=== PATIENT | male | born 1990 | race Caucasian/White ===

== ENCOUNTER 2021-05-10 13:57 | Observation (INO) | payer OTHER, SELFPAY ==
[2021-05-10 14:01] VITALS: BP 140/70; PULSE 77; RESP 16; TEMP 37.1; O2SAT 100
--- NOTE | 2021-05-10 14:45 | DI.CT_ITS ---
Exam(s) CT LUMBAR SPINE WO EXAM: CT LUMBAR SPINE WO CLINICAL HISTORY: back midline and b/l paraspinal TECHNIQUE: COMPARISON: No exams were available for comparison FINDINGS: CT examination lumbosacral spine was performed utilizing multi slice acquisition and multiplanar edwin nstruction. Visualized portions of the abdomen show no evidence of pre-spinal mass. Kidneys and adr enals appear intact as visualized. Normal diameter of abdominal aorta. No adenopathy seen. Urinary bladder grossly unremarkable. Visualized bowel is intact. No focal bony abnormality identified in the region surveyed. No evidence of spondylolysis or spondyl olisthesis. There is abnormal contour of intervertebral discs at L4-5 and L5-S1 levels, there is suggestion of mo derate broad-based disc herniations at both the L4-5 and L5-S1 levels suggest laura Anjana deforming th e thecal sac anteriorly at these levels. No additional disc herniation identified in the lumbar region. No bony central canal spinal stenosis or neural foraminal stenosis. IMPRESSION: There appear to be broad-based predominantly central disc herniations, moderate in size, at both L4-5 and L5-S1 levels. Please correlate with the patient's neurologic examination. MR would provide mor e accurate detail involving these apparent herniated discs. RADIATION DOSE DELIVERED: 795.08mGy.cm Total DLP CTDIvol RADIATION OPTIMIZATION: All CT scans at this facility use at least one of these dose optimization te chniques: automated exposure control; mA and/or kV adjustment per patient size (includes targeted exa ms where dose is matched to clinical indication); or iterative reconstruction.
--- NOTE | 2021-05-10 14:51 | ED.GENADUL_ITS ---
Discharge Plan Disposition Patient Disposition: [facility] INPATIENT Condition: Stable Discharge Details Clinical Impression: Intractable back pain, Lumbar disc herniation Primary Care Provider: Unknown,Unknown ED Provider: Jany Escobar Home Meds and New Rx's Prescriptions: No Action topiramate 25 mg tablet 25 mg PO DAILY RF: 0 sertraline 50 mg tablet 50 mg PO .QHS RF: 0 Medical Decision Making 31-year-old male presents with sudden onset of lower back pain after carrying and placing down an empty recycling bin prior to arrival. Given nitrous oxide per EMS in route with temporary relief. No cauda equina symptoms. Patient appears uncomfortable. He has no focal deficits. Neurovascular intact. Due to complaint of crunching sensation will obtain CT lumbar spine. Will give a dose of IM Toradol, p.o. oxycodone, p.o. Valium and p.o. prednisone and reassess. CT reviewed and there is a broad-based predominantly central disc herniation, moderate in size at both L4-5 and L5-S1 levels. Please correlate with patient's neurologic exam. MRI would provide more accurate details on these apparent herniated discs. Images pushed to [facility] spine for review. Patient reassessed and he has improvement at rest, but significant pain with any movement. Will place an IV and give a dose of morphine. Images reviewed with [facility] spine --they note that CT imaging is not ideal for review of soft tissue so cannot confirm that there is disc herniation. As patient has no radicular pain, he may not need an MRI if his pain is well controlled. Recommends conservative management with pain control and follow-up with PCP and pain clinic if able to control pain in the emergency department. Patient reassessed and he was able to take a few steps with a walker but was in significant pain and does not feel comfortable going home. Will admit for intractable back pain with evaluation with PT and consideration for MRI lumbar spine tomorrow if indicated. Case discussed with hospitalist who accepts patient for admission. Medical Records Medical records reviewed: Yes I reviewed the patient's medical records. Imaging Data Radiologic Study: Radiologist's impression: CT LUMBAR SPINE WO CLINICAL HISTORY: back midline and b/l paraspinal TECHNIQUE: COMPARISON: No exams were available for comparison FINDINGS: CT examination lumbosacral spine was performed utilizing multi slice acquisition and multiplanar reconstruction. Visualized portions of the abdomen show no evidence of pre-spinal mass. Kidneys and adrenals appear intact as visualized. Normal diameter of abdominal aorta. No adenopathy seen. Urinary bladder grossly unremarkable. Visualized bowel is intact. No focal bony abnormality identified in the region surveyed. No evidence of spondylolysis or spondylolisthesis. There is abnormal contour of intervertebral discs at L4-5 and L5-S1 levels, there is suggestion of moderate broad-based disc herniations at both the L4-5 and L5-S1 levels suggest laura Anjana deforming the thecal sac anteriorly at these levels. No additional disc herniation identified in the lumbar region. No bony central canal spinal stenosis or neural foraminal stenosis. IMPRESSION: There appear to be broad-based predominantly central disc herniations, moderate in size, at both L4-5 and L5-S1 levels. Please correlate with the patient's neurologic examination. MR would provide more accurate detail involving these apparent herniated discs. HPI General Mode of arrival: EMS . Date/Time Provider Initiated Documentation: 05/10/21 14:41 . Limitations to Documentation: physical limitation . Information obtained by: patient . HPI Narrative: Patient is a 31-year-old male with a history of migraine and depression who presents for sudden onset of midline lower back pain after carrying into the recycling bin prior to arrival. Patient states he was carrying a bin outside when he bent over to put it down and felt sudden crunching in his midline lower back with severe back pain across his lower back. He states the pain caused him to drop immediately to his knees. He has not taken any medication for pain at home prior to arrival. EMS gave him nitrous oxide with some temporary relief. He denies any bowel or bladder incontinence, saddle anesthesia, leg pain weakness or numbness. He states for the past 2 days he has had knee pain and thinks he has altered his gait to compensate for this pain and limit weightbearing on that side. Related Data Home Medications Medication Instructions Recorded Confirmed sertraline 50 mg PO .QHS 05/10/21 05/10/21 topiramate 25 mg PO DAILY 05/10/21 05/10/21 Allergies Allergy/AdvReac Type Severity Reaction Status Date / Time seasonal Allergy Uncoded 05/10/21 14:06 General Stated Complaint: Nk/Back Pain MELA: 3 Review of Systems All systems reviewed & are unremarkable except as noted in HPI and below Constitutional Constitutional: Reports as per HPI, Denies chills and Denies fever(s) Eyes Eyes: Denies blurry vision ENT Ears, Nose, Mouth, and Throat: Denies dizziness, Denies sore throat and Denies throat swelling Cardiovascular Cardiovascular: Denies chest pain and Denies dyspnea Respiratory Respiratory: Denies cough and Denies dyspnea Gastrointestinal Gastrointestinal: Denies abdominal pain, Denies diarrhea and Denies vomiting Genitourinary Genitourinary: Denies hematuria and Denies dysuria Musculoskeletal Musculoskeletal: Reports back pain and Denies numbness Integumentary/Breasts Skin/Breast: Denies lesions and Denies rash Neurologic Neurologic: Denies dizziness, Denies localized weakness and Denies numbness Allergic/Immunologic Allergic/Immunologic: Denies throat swelling PFSH Medical History Depression Migraine Surgical History No significant past surgical history Social History Smoking risk assessment performed?: No Substance use type: does not use Exam Const General: cooperative, healthy appearing and no acute distress HENMT Head: normal to inspection Face and sinus: normal facial exam Eyes General: appearance normal, both eyes and all related structures EOM: EOM intact bilaterally Neck Neck: normal visual inspection and No submandibular swelling Lymphatic: no lymphadenopathy noted Chest Chest: normal inspection of the chest and no tenderness Resp Effort & Inspection: normal respiratory effort and able to speak in complete sentences Auscultation: clear to auscultation bilaterally Cardio Rate: regular rate Rhythm: regular rhythm GI Inspection: normal to inspection Palpation: soft, not firm, not rigid and nontender Auscultation: normal bowel sounds Back/Spine/Pelvis Thoracic/Lumbar Spine: straight leg raise negative bilaterally Skin General skin exam: no rashes or lesions noted Neuro General: patient alert, patient awake and patient oriented x3 Cognition: normal cognition Speech: speech normal Motor: muscle tone normal throughout and strength 5/5 throughout Sensory Exam: no sensory deficits noted DTR's: Rt Patellar: 1+, Lt Patellar: 1+, Rt Ankle: 1+ and Lt Ankle: 1+ Plantar Reflexes: Equivocal: bilateral (Negative babinski b/l ) Extrem General: normal to inspection, full ROM, capillary refill normal, no calf tenderness bilaterally and no edema Psych Appearance: grossly normal Mental Status: mental status grossly normal Speech and Movement: speech and movement normal Affect: normal affect Course Vital Signs Vital signs: Vital Signs Temperature 98.8 F 05/10/21 14:01 Pulse 77 05/10/21 14:01 Respiratory Rate 16 05/10/21 14:01 Blood Pressure 140/70 05/10/21 14:01 Pulse Oximetry 100 05/10/21 14:01 Temperature 98.8 F 05/10/21 14:01 Temperature Source Skin 05/10/21 14:01 Pulse 77 05/10/21 14:01 Respiratory Rate 16 05/10/21 14:01 Respiratory Effort Non-Labored 05/10/21 14:01 Blood Pressure 140/70 05/10/21 14:01 Blood Pressure Position Supine 05/10/21 14:01 Pulse Oximetry 100 05/10/21 14:01 Oxygen Delivery Method Room Air 05/10/21 14:01 Oxygen Flow Rate 0 05/10/21 14:01 Pain Level 10 05/10/21 14:08
[2021-05-10] MEDS: diazePAM 5 MG TAB PO (14:58)
[2021-05-10] MEDS: Ketorolac 60 MG/2 ML VIAL IM (14:59)
[2021-05-10] MEDS: oxyCODONE 5 MG TAB PO ×3 (14:59→21:12)
[2021-05-10] MEDS: predniSONE 20 MG TAB 60 MG PO (14:59)
[2021-05-10 16:18] VITALS: BP 108/64; PULSE 70; RESP 16; O2SAT 99
--- NOTE | 2021-05-10 17:54 | NUR.NOTE ---
pt attempted to get up . he was able to ambulate around the bed before the pain in his back became unbearable Nursing Note:
--- NOTE | 2021-05-10 19:04 | W.PM.HP.N ---
Date of service: 05/10/21 Time of Service: 19:04 Assessment and Plan Assessment and plan (1) Back pain: Status: Acute Assessment and plan: Acute low back pain due (no doubt) to herniated disc. No neurological compromise. Will continue to treat symptomatically with analgesics, steroids and will add muscle relaxant and have PT in to see if we can mobilize him. History of Present Illness History of Present Illness Chief Complaint: back pain Narrative: 31 male -- while lifting recycling bin at home felt sudden midline low back pain. No radiation or LE sensory symptoms. In ER w/u of note for intact neurological exam and CT showing (probable) disc herniation at both L4-5 and L5-S1 levels. Patient has received Toradol, MS and Oxycodone x 2 with modest pain relief, along with Prednisone 60. Staff attempted to walk him w/o success due to pain. He is admitted for further management. At present states pain persists but is at manageable level -- for now. Review of Systems All systems reviewed & are unremarkable except as noted in HPI and below PFSH Medical History Depression Migraine Surgical History No significant past surgical history Social History Smoking risk assessment performed?: No Substance use type: does not use Meds Allergies and Home Medications Allergies Allergy/AdvReac Type Severity Reaction Status Date / Time seasonal Allergy Uncoded 05/10/21 14:06 Home Medications Medication Instructions Recorded Confirmed Type sertraline 50 mg PO .QHS 05/10/21 05/10/21 History topiramate 25 mg PO DAILY 05/10/21 05/10/21 History Exam Narrative Exam Narrative: 108/64, 70, 37.1, 16, 99% RA. HEENT atraumatic; neck supple; lungs clear; heart RRR w/o MRG; abdomen soft and NT; back not examined due to patient discomfort (patient supine); extremities w/o edema; neuro Ox3, lucid, motor 5/5 prox/distal, sensory intact light touch, toes downgoing Results Last Vital Signs Temp 37.1 C 05/10/21 14:01 Pulse 70 05/10/21 16:18 Resp 16 05/10/21 16:18 BP 108/64 05/10/21 16:18 Pulse Ox 99 05/10/21 16:18
[2021-05-10 20:51] VITALS: BP 125/79; PULSE 81; RESP 16; TEMP 36.5; O2SAT 99
[2021-05-10 21:02] VITALS: BP 125/79; PULSE 81; RESP 16; TEMP 36.5; O2SAT 99
[2021-05-10] MEDS: Cyclobenzaprine 10 MG TAB PO (21:12)
[2021-05-10] MEDS: Topiramate 25 MG TAB PO (21:12)
[2021-05-10] MEDS: Sertraline 50 MG TAB PO (21:13)
--- NOTE | 2021-05-11 | DI.MRI_ITS ---
Exam(s) MR LUMBAR SPINE WO EXAM: MR LUMBAR SPINE WO CLINICAL HISTORY: disc hernation. TECHNIQUE: Multiplanar multisequence MRI of the Lumbar spine was performed. COMPARISON: Prior CT scan 05/10/2021 was reviewed FINDINGS: Five lumbar vertebrae are presumed. Conus medullaris is at normal level. There is no evidence of conus mass nor subjacent clumping of in trathecal nerve roots to suggest arachnoiditis. The distal thecal sac appears unremarkable.There is no evidence of Tarlov intrasacral cysts nor other significant findings within the sacral canal Bones:There are no fractures nor ominous osseous lesions in the lumbar vertebral bodies and visualize d sacrum. With respect to the individual levels... T12-L1: Unremarkable L1-2: Normal disc height and signal. No disc herniation nor central canal stenosis.No foraminal steno sis L2-3: Normal disc height. No disc herniation nor central canal stenosis.No foraminal stenosis.No face t arthropathy. L3-4: Normal disc height. No disc herniation or central canal stenosis.No foraminal stenosis.No face t arthropathy. L4-5: Normal disc height and signal. There is posterior central subligamentous disc protrusion which indents the anterior aspect of the thecal sac. This extends posteriorly 4.5 millimeters and is appr oximately 1.5 cm wide. Central canal dimensions are lower normal. Disc herniation does not extend a ppreciably into the exiting neural foramina which are patent bilaterally. No significant facet arthr osis at this level. L5-S1: Normal disc height. There is also a central posterior subligamentous disc protrusion at this level, quite similar in size and appearance to what is present at L4-5 level and slight indentation o f the thecal sac. Central canal dimensions are lower normal. Disc herniation does not extend apprec iably into the exiting neural foramina and there is no significant foraminal stenosis on either side at this level. No significant facet arthropathy. Soft tissues: paraspinal soft tissues appear unremarkable. IMPRESSION: 1. There are posterior central subligamentous disc herniations at both L4-5 and L5-S1 levels as descr ibed above, and as also seen on prior CT scan 05/10/2021. The disc herniations at these levels do no t appear to have increased in size when compared to that CT scan. No prominent central canal stenosi s. 2. No foraminal stenosis. 3. No abnormal marrow signal DATA REPOSITORY:
[2021-05-11 00:16] LABS: Source Nasal/Nares
[2021-05-11 04:43] VITALS: BP 113/56; PULSE 91; RESP 18; TEMP 35.8; O2SAT 99
[2021-05-11] MEDS: Acetaminophen 325 MG TAB 650 MG PO (08:10)
[2021-05-11] MEDS: Cyclobenzaprine 10 MG TAB PO (08:11)
[2021-05-11] MEDS: predniSONE 20 MG TAB 60 MG PO (08:11)
[2021-05-11 08:25] VITALS: BP 122/65; PULSE 81; RESP 18; TEMP 36.3; O2SAT 100
[2021-05-11] MEDS: oxyCODONE 5 MG TAB PO (09:30)
[2021-05-11] MEDS: Normal Saline Flush 10 ML SYR IVP (09:32)
--- NOTE | 2021-05-11 10:04 | PDOC.CMIN ---
- If Service Date Differs Date of service: 05/11/21 Time of Service: 10:04 Care Management Initial Assess REASON FOR HOSPITALIZATION:: back pain PAST MEDICAL HISTORY/PAST SURGICAL HISTORY:: Medical History . Depression. Migraine. Surgical History . No significant past surgical history PREVIOUS FUNCTIONAL STATUS/SOCIAL/FAMILY SUPPORTS:: Nelson lives in [place], [place] with his Dania. They have no children. Dania volunteered that they do have dogs. 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 He is independent at baseline and receives no community services. CURRENT FUNCTIONAL STATUS:: Nelson was dressed and ready for discharge when CM met with him. He was pleasant and cooperative but was in pain. He informed CM that his MRI showed that he has 2 bulging discs. He is to follow up with neurosurgery and outpatient PT. ADVANCE DIRECTIVES:: none on file Has patient been provided with info about the portal/API?: Yes Did the patient sign up for the portal?: No CODE STATUS:: Full Code INSURANCE COVERAGE / FINANCIAL ISSUES:: [employer] CURRENT HOME/COMMUNITY SERVICES/EQUIPMENT:: none PRIMARY CARE PHYSICIAN:: [facility]. Booker at [facility] in [place] POTENTIAL DISCHARGE NEEDS:: Follow up with PCP and plan of care PATIENT/FAMILY EDUCATION NEEDS:: Review of discharge instructions, medications, activity, limitations, follow up plan, Ask Me Three TRANSPORTATION:: via private vehicle with family PLAN:: Nelson will be dicharged home with no new services. He will follow up with his PCP, neurosurgery and plan of care and transport with family. He will also receive outpatient PT.
[2021-05-11 11:43] LABS: COVID-19 PCR Negative (Negative)
--- NOTE | 2021-05-11 13:12 | IN_ITS ---
Date of service: 05/11/21 Time of Service: 11:09 PT Notes Visit Reasons: Low Back Pain Physical Therapy Inpatient Initial Evaluation Date: 05/11/2021 Referring Doctor: Jed Santiago MD PT Orders: PT CONSULT: Eval/treat. Precautions: Fall. Standard. Back precautions in place. Patient Profile/Admitting Diagnosis: Derek is a 31-year-old male who presented to the ED on 05/10/2021 due to sudden midline low back pain brought on by moving loaded recycling bins at home. Patient is diagnosed with low back pain and is admitted for pain management and mobilization by PT. PMHX: Medical History Depression Migraine Surgical History No significant past surgical history Social History/Home Situation: Lives with in a private home with 2 steps to enter. Has 7 steep and narrow steps that lead onto a landing and another 4 steps to the second floor of the house where there the bedroom is. 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 Equipment Owned/DME: None. Subjective: Agreeable to PT consult. States that the night before, he was moving some loaded recyling bins and when he attempted to bend down, he heard a pop in his low back that was accompanied by severe pain which prevented him from standing back up. He stayed on the ground on all fours until EMS picked him up 20 minutes after. This morning this provider saw patient on his way out from the bathroom right after his shower slowly walking back to his hospital room. Has 2/10 pain n the back at rest. Pain does not radiate to either LE. He states that he feels a lot better but still endorses 4-5/10 pain in the low back with weight bearing and movement. Objective: General Observation: Limited trunk rotation duirng ambulation. Movements remain guarded specially during movement transitions. Palpation: Midline lumbar spine tender to touch, lumbar paraspinals tender as well Mental Status: Alert and oriented as to person, place, time, and purpose. Able to pay attention, focus, and respond appropriately. Pain: 2/10 at rest. 5/10 in low back area with ambulation activity ROM: Right Upper Extremity: Shoulder Flexion WFL. Shoulder abduction WFL. Elbow flexion WFL. Wrist flexion WFL. Functional opening and closing of hand WFL. Left Upper Extremity: Shoulder Flexion WFL. Shoulder abduction WFL. Elbow flexion WFL. Wrist flexion WFL. Functional opening and closing of hand WFL. Right Lower Extremity: Hip flexion WFL. Hip abduction WFL. Knee flexion WFL. Ankle dorsiflexion WFL. Ankle plantarflexion WFL. Left Lower Extremity: Hip flexion WFL. Hip abduction WFL. Knee flexion WFL. Ankle dorsiflexion WFL. Ankle plantarflexion WFL. Strength: Right Upper Extremity: Shoulder flexors 5/5. Shoulder abductors 5/5. Elbow flexors 5/5. Elbow extensors 5/5. [employer] strong. Left Upper Extremity: Shoulder flexors 5/5. Shoulder abductors 5/5. Elbow flexors 5/5. Elbow extensors 5/5. [employer] strong. Right Lower Extremity: Hip flexors 4-/5. Hip abductors 4-/5. Knee flexors 5/5. Knee extensors 4-/5. Ankle dorsiflexors 5/5. Ankle plantarflexors 5/5. Left Lower Extremity: Hip flexors 4-/5. Hip abductors 4-/5. Knee flexors 5/5. Knee extensors 4-/5. Ankle dorsiflexors 5/5. Ankle plantarflexors 5/5. THERA EX: Patient was instructed with back flexion exercises of posterior pelvic tilting, abdominal drawing-in maneuver, unilateral and bilateral [id number] combined with abdominal bracing, and pelvic/knee rocks prior to ambulation activity x 10 reps. Bed Mobility/Transfers: Rolling independent Supine to sit independent Sit to supine independent Sit to stand independent Stand to sit independent Gait: Instructed patient with level surface ambulation of 300 feet requiring supervision assist. Radha decreased. Trunk rotation minimized. Reported increased pain to 5/10 in the low back area at end of activity. Denies any radiation of pain to BLE. Stairs: Up and down 6 x 4-inch steps and 4 X 6-inch steps while holding onto 1 rail without increase in pain report. [id number] pattern. Balance: Static Sitting: Normal Dynamic Sitting: Normal Static Standing: Normal Dynamic Standing: Good Special Tests: Mobility Limitations Standardized Measure [facility] 6 clicks Basic Mobility Inpatient Short Form: Raw Score: 24 CMS Score: 0% deficit NEUROLOGIC TESTS: Tripod sign-produced increased pain but with no radiation Straight Leg Raise- produced increased central back pain without radiation at about 40 degrees in B legs with R SLR producing more pain than L L4 myotome 4-/5 on B sides L5 myotome 5/5 on B sides, able to heel walk for 5-8 without issues S1 myotome 5/5 on B sides, able to toe walk without issues L4 dermatome intact on L, decreased sensitivity to pin prick and light touch on R L5 dermatome intact on L, decreased sensitivity to pin prick and light touch on R S1 dermatome intact on L, decreased sesitivity to pin prick and light touch on R Informed Consent/Education: Patient was instructed in purpose of PT consult and plan of care. Agreeable to proceed with established PT POC to achieve personal goals. Assessment: No radiculopathy reported. Pain centralized. However, sensory changes noted with decreased ability to dicrimintae as to light touch and pin prick on L L4, L5, S1 dermatomal distribution. Pain level much more controlled as of this time. Patient will benefit from outpatient PT for continued pain management and core stabilization/strengthening to facilitate full return to all ADL task performance. MRI reading shows: 1. There are posterior central subligamentous disc herniations at both L4-5 and L5-S1 levels as described above, and as also seen on prior CT scan 05/10/2021. The disc herniations at these levels do not appear to have increased in size when compared to that CT scan. No prominent central canal stenosis. 2. No foraminal stenosis. 3. No abnormal marrow signal Patient presents with clinical signs and symptoms consistent with current/admitting diagnoses that have resulted to mobility limitations, gait instability, generalized weakness, and overall ADL decline as demonstrated by the following impairment level findings: 1. Decreased strength to L4 myotome bilaterally 3. Impaired activity tolerance 4. Pain in low back at 5/10 Impairments are contributing to the following functional limitations: 1. Increased completion time for mobility ADL performance 2. Limited ability to participate in activities below the hip 3. Difficulty with managing steps Patient is assessed as a [id number] moderate complexity based on the following: History: 31-year-old male with past medical history as indicated above Examination: Demonstrable impairment in strength, balance, and mobility level with underlying impairments and functional limitations as exhibited above as well as deficit score of 0% utilizing the [facility] Mobility Inpatient Short Form Presentation: Stable Decision Makin moderate complexity Goals: N/A. PT evalaution and 1 treatment session only for HEP education and functional mobility training. Plan of Care/Treatment Plan: N/A. PT evalaution and 1 treatment session only for HEP education and functional mobility training. DISCHARGE RECOMMENDATIONS: Outpatient PT services for cotninued pain management and core stabilization/strengthening to facilitate return to PLOF and vocational activities. TREATMENT CODE/TIME: Session 1- [id number] x 20 minutes, [id number] x 26 minutes beginning at 11:09 PM. Session 2--[id number] x 24 minutes beginning at 13:12 PM. Thank you for the opportunity to participate in the care of this patient. Mayra Zapien PT, DPT, CLT [facility] [place], [place]
[2021-05-11 15:43] VITALS: BP 124/66; PULSE 80; RESP 18; TEMP 36.3; O2SAT 100
[2021-05-11] MEDS: diazePAM 5 MG TAB 10 MG PO (15:52)
--- NOTE | 2021-05-11 15:59 | W.PM.DS.N ---
Date of service: 05/11/21 Time of Service: 15:59 DS: Diagnosis Discharge Diagnosis (1) Back pain: Start date: 05/11/21 Start time: 15:59 Status: Acute Asessment and Plan: woke up yesterday morning due to severe back pain. Admitted for pain control CT revealing There appear to be broad-based predominantly central disc herniations, moderate in size, at both L4-5 and L5-S1 levels. Please correlate with the patient's neurologic examination. MR would provide more accurate detail involving these apparent herniated discs. MRI ordered revealing MRIMPRESSION: 1. There are posterior central subligamentous disc herniations at both L4-5 and L5-S1 levels as described above, and as also seen on prior CT scan 05/10/2021. The disc herniations at these levels do not appear to have increased in size when compared to that CT scan. No prominent central canal stenosis. 2. No foraminal stenosis. 3. No abnormal marrow signal He was able to ambulate with PT but PT recommended outpatient PT. He will be seen starting tomorrow. Will give him percocet, valium, and skelaxin for pain. will also give narcan in setting of narcan and benzos. Will follow with PT and neurosurgery as an outpatient. 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 He denies CP, SOB, N/V/D Discharge Plan Disposition Patient Disposition: HOME Condition: Stable Discharge Details Reason For Visit: Low Back Pain Admit Date/Time: 05/10/21 19:13 Admit Provider: Jed Santiago Attending Provider: Jed Santiago Primary Care Provider: Unknown,Unknown Hospital Course Hospital Course: 31 y.o male presented to ED with c/o severe lower back pain. He was admitted to m/s for pain control and PT. imaging revealing for herniated discs L4-5 and L5-S1 levels. He worked with PT they recommend outpatient PT. He should be out of work for the ED until Tuesday to give him time to work with PT and become stronger. He will start PT tomorrow. Will send home with analgesics and muscle relaxants. Follow up with outpatient PT and neurosurgery at [facility], we will call with time and date. 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 He denies CP, SOB, N/V/D> Home Meds and New Rx's Prescriptions: New diazepam [Valium] 10 mg tablet 10 mg PO TID PRNQty: 60 RF: 0 oxycodone 5 mg tablet 5 mg PO Q4H PRNQty: 30 RF: 0 metaxalone [Skelaxin] 800 mg tablet 800 mg PO TID Qty: 30 RF: 0 Continued topiramate 25 mg tablet 25 mg PO DAILY RF: 0 sertraline 50 mg tablet 50 mg PO .QHS RF: 0 Discharge Instructions Instructions: Lumbar Disc Herniation (DC), Low Back Strain (DC), Lumbar Radiculopathy (ED) Additional Instructions: Follow up with PT tomorrow, May return to work on Tuesday Light duty with EMS until cleared by PT Follow up with neurosurgery at [facility], we will call you with the time and date tomorrow. Use ice and heat alternating for your lower back pain Stand Alone Forms: Nursing Discharge Form Referrals: Diogenes Abel, PT [PHYSICAL THERAPIST] - 05/12/21 10:00 am (Go to the [facility] Medical office on the [facility]- There phone number is [phone]) Activity:: Activity as Tolerated Equipment/Supplies:: No Equipment Needed Diet:: As Tolerated Discharge Orders Discharge Orders: Discharge Order (Routine); Ordered 05/11/21 Ordered By: Ashley Snell DS: Summary Time Spent with Patient providing and/or coordinating discharge services: Less than 30 minutes Status at Discharge Functional status at discharge: independent ambulation Overall status at discharge: patient is progressing back to baseline Mental Status: mental status grossly normal Speech and Movement: speech and movement normal Mood: congruent mood Affect: normal affect Exam Narrative Exam Narrative: RA. HEENT atraumatic; neck supple; lungs clear; heart RRR w/o MRG; abdomen soft and NT; back pain improving but still having discomfort; extremities w/o edema; neuro Ox3, lucid, motor 5/5 prox/distal, sensory intact light touch, toes downgoing Psych Mental Status: mental status grossly normal Speech and Movement: speech and movement normal Mood: congruent mood Affect: normal affect DS: Data Vitals/I&O Vitals and I&O: Vital Signs Temperature 36.3 C L 05/11/21 15:43 Temperature Source Tympanic 05/11/21 15:43 Pulse 80 05/11/21 15:43 Pulse Rhythm Regular 05/11/21 10:10 Respiratory Rate 18 05/11/21 15:43 Respiratory Effort Non-Labored 05/11/21 10:10 Respiratory Depth Normal 05/11/21 10:10 Respiratory Pattern Normal 05/11/21 10:10 Blood Pressure 124/66 05/11/21 15:43 Blood Pressure Position Supine 05/10/21 14:01 Pulse Oximetry 100 05/11/21 15:43 Oxygen Delivery Method Room Air 05/11/21 15:43 Oxygen Flow Rate 0 05/11/21 15:43 Pain Level 4 05/11/21 15:52 Comment 05/10/21 20:51 Intake & Output 05/10/21 05/11/21 05/11/21 23:59 11:59 23:59 Weight 88.451 kg Other: Urine Appearance Clear Comment pt voiding in toilet independently Data Completed and Pending Completed studies during hospitalization [Text1]: CT LUMBAR SPINE WO EXAM: CT LUMBAR SPINE WO CLINICAL HISTORY: back midline and b/l paraspinal TECHNIQUE: COMPARISON: No exams were available for comparison FINDINGS: CT examination lumbosacral spine was performed utilizing multi slice acquisition and multiplanar reconstruction. Visualized portions of the abdomen show no evidence of pre-spinal mass. Kidneys and adrenals appear intact as visualized. Normal diameter of abdominal aorta. No adenopathy seen. Urinary bladder grossly unremarkable. Visualized bowel is intact. No focal bony abnormality identified in the region surveyed. No evidence of spondylolysis or spondylolisthesis. There is abnormal contour of intervertebral discs at L4-5 and L5-S1 levels, there is suggestion of moderate broad-based disc herniations at both the L4-5 and L5-S1 levels suggest laura Anjana deforming the thecal sac anteriorly at these levels. No additional disc herniation identified in the lumbar region. No bony central canal spinal stenosis or neural foraminal stenosis. IMPRESSION: There appear to be broad-based predominantly central disc herniations, moderate in size, at both L4-5 and L5-S1 levels. Please correlate with the patient's neurologic examination. MR would provide more accurate detail involving these apparent herniated discs. Exam(s) MR LUMBAR SPINE WO EXAM: MR LUMBAR SPINE WO CLINICAL HISTORY: disc hernation. TECHNIQUE: Multiplanar multisequence MRI of the Lumbar spine was performed. COMPARISON: Prior CT scan 05/10/2021 was reviewed FINDINGS: Five lumbar vertebrae are presumed. Conus medullaris is at normal level. There is no evidence of conus mass nor subjacent clumping of intrathecal nerve roots to suggest arachnoiditis. The distal thecal sac appears unremarkable.There is no evidence of Tarlov intrasacral cysts nor other significant findings within the sacral canal Bones:There are no fractures nor ominous osseous lesions in the lumbar vertebral bodies and visualized sacrum. With respect to the individual levels... T12-L1: Unremarkable L1-2: Normal disc height and signal. No disc herniation nor central canal stenosis.No foraminal stenosis L2-3: Normal disc height. No disc herniation nor central canal stenosis.No foraminal stenosis.No facet arthropathy. L3-4: Normal disc height. No disc herniation or central canal stenosis.No foraminal stenosis.No facet arthropathy. L4-5: Normal disc height and signal. There is posterior central subligamentous disc protrusion which indents the anterior aspect of the thecal sac. This extends posteriorly 4.5 millimeters and is approximately 1.5 cm wide. Central canal dimensions are lower normal. Disc herniation does not extend appreciably into the exiting neural foramina which are patent bilaterally. No significant facet arthrosis at this level. L5-S1: Normal disc height. There is also a central posterior subligamentous disc protrusion at this level, quite similar in size and appearance to what is present at L4-5 level and slight indentation of the thecal sac. Central canal dimensions are lower normal. Disc herniation does not extend appreciably into the exiting neural foramina and there is no significant foraminal stenosis on either side at this level. No significant facet arthropathy. Soft tissues: paraspinal soft tissues appear unremarkable. IMPRESSION: 1. There are posterior central subligamentous disc herniations at both L4-5 and L5-S1 levels as described above, and as also seen on prior CT scan 05/10/2021. The disc herniations at these levels do not appear to have increased in size when compared to that CT scan. No prominent central canal stenosis. 2. No foraminal stenosis. 3. No abnormal marrow signal Labs on day of discharge: Labs from last 24 hours 05/11/21 00:10 COVID-19 Source Nasal/Nares SARS-CoV-2 (PCR) Negative [facility] Medical History Depression Migraine Surgical History No significant past surgical history Social History Smoking risk assessment performed?: No Substance use type: does not use
== END 2021-05-11 17:03 | disposition home or self-care (01) ==
LOC: ER 20:04 → MS 22:15
PROVIDERS: Admitting Provider General Practice; Emergency Provider Physician Assistant; Visit Provider General Practice
DX: M51.26 Other intervertebral disc displacement, lumbar region (principal); F32.9 Major depressive disorder, single episode, unspecified; G43.909 Migraine, unspecified, not intractable, without status migrainosus
CPT/HCPCS: 87635; 96372; 96374; 97110; 97162; 97530; 99285; 72131; 72148; 99217; 99218; G0378; J1885; J7512

== ENCOUNTER 2021-09-28 11:56 | Outpatient (REF) | payer SELFPAY ==
[2021-09-30 14:36] LABS: TB Interpretation Negative (Negative)
== END 2021-09-28 11:57 | disposition home or self-care (01) ==
LOC: LBO 11:56
PROVIDERS: Visit Provider Nurse Practitioner Family
DX: Z02.1 Encounter for pre-employment examination (principal); Z11.1 Encounter for screening for respiratory tuberculosis
CPT/HCPCS: 36415; 86480

== ENCOUNTER 2021-11-24 00:49 | Emergency (ER) | payer OTHER, SELFPAY ==
[2021-11-24 00:53] VITALS: BP 131/84; PULSE 93; RESP 14; TEMP 36.7; O2SAT 98
--- NOTE | 2021-11-24 01:15 | DI.CT_ITS ---
Exam(s) CT BRAIN NECK CTA EXAM: CT BRAIN NECK CTA CLINICAL HISTORY: atypical headache, left orbittal in nature. TECHNIQUE: Imaging Protocol: Axial CT angiography was performed with multi-slice acquisition and mu lti-planar and/or 3D reconstructions. CONTRAST MATERIAL: Intravenous: Omnipaque 350 Contrast volume:85 mL COMPARISON: No exams were available for comparison FINDINGS: CT Head W/O and W: Ventricles and Extra axial spaces: There is asymmetry in size of the lateral ventricles. The left la teral ventricle appears slightly enlarged compared to the right lateral ventricle. Hemorrhage: None. Cerebral parenchyma: There is an abnormal appearance in the region of the anterior corpus callosum ra ising the question of hypoplasia. Subependymal nodules are seen along the left lateral ventricle. T here is asymmetric atrophy seen in the left frontal lobe. No acute territorial infarct. Midline shift: None. Brainstem/Cerebellum: Normal. Calvarium: Normal. Visualized Paranasal sinuses/Mastoids: Clear. Soft Tissues: Unremarkable. Enhancement: Unremarkable. CTA Neck W: Common Carotid: Right: No dissection, occlusion or significant stenosis. Left: No dissection, occlusion or significant stenosis. External Carotid: Right: No occlusion or significant stenosis. Left: No occlusion or significant stenosis. Internal Carotid: Right: No dissection, occlusion or significant stenosis. Left: No dissection, occlusion or significant stenosis. Vertebral Artery: Right: No dissection, occlusion or significant stenosis. Left: No dissection, occlusion or significant stenosis. Lung Apices: Normal. Bones: Within normal limits for the patient's age. Soft Tissues: Mildly prominent lymph nodes are seen in the neck at the level of the submandibular gla nd bilaterally. The largest measures 1.1 cm x 0.8 cm. They have a normal lymph node architecture an d are likely reactive. Please correlate clinically. Thyroid gland: Unremarkable. CTA Brain W: Internal Carotid Arteries: Normal. Anterior Cerebral Arteries: Right: No aneurysm, occlusion or significant stenosis. Left: No aneurysm, occlusion or significant stenosis. Middle Cerebral Arteries: Right: No aneurysm, occlusion or significant stenosis. Left: No aneurysm, occlusion or significant stenosis. Posterior Cerebral Arteries: Right: No aneurysm, occlusion or significant stenosis. The right SWITCH OPERATOR arises from the right posterior communicating artery. This is a normal variant. Left: No aneurysm, occlusion or significant stenosis. Vertebral Arteries: Right: No aneurysm, occlusion or significant stenosis. Left: No aneurysm, occlusion or significant stenosis. Basilar Artery: No aneurysm, occlusion or significant stenosis. IMPRESSION: 1. No large vessel occlusion or significant stenosis on the CT angiography of the head. 2. No acute intracranial process. 3. Findings in the brain parenchyma suggesting congenital abnormalities. An MRI of the brain without and with contrast may be considered for further evaluation. 4. No occlusion or significant stenosis on the CT angiography of the neck. RADIATION DOSE DELIVERED: 2,029.46mGy.cm Total DLP DATA REPOSITORY: All CT scans at this facility are submitted to the National Radiology Data Registry (NRDR) Dose Index Registry (DIR) with the [employer] (A[employer]). RADIATION OPTIMIZATION: All CT scans at this facility use at least one of these dose optimization te chniques: automated exposure control; mA and/or kV adjustment per patient size (includes targeted exa ms where dose is matched to clinical indication); or iterative reconstruction.
--- NOTE | 2021-11-24 01:19 | ED.GENADUL_ITS ---
Discharge Plan Disposition Patient Disposition: HOME Condition: Improving Discharge Details Clinical Impression: Headache, Abnormal CT of brain Primary Care Provider: Unknown,Unknown ED Provider: Elliot Mcfarland Home Meds and New Rx's Prescriptions: Continued topiramate 25 mg tablet 25 mg PO DAILY 0RF sertraline 50 mg tablet 50 mg PO .QHS 0RF diazepam [Valium] 10 mg tablet 10 mg PO TID PRNQty: 60 0RF Rx Instructions: for back pain and spasm oxycodone 5 mg tablet 5 mg PO Q4H PRNQty: 30 0RF Rx Instructions: Take 1-2 tabs as needed for back pain cetirizine [Zyrtec] 10 mg Tablet 10 mg PO DAILY PRN0RF metaxalone [Skelaxin] 800 mg tablet 800 mg PO TID PRN0RF Rx Instructions: Take as needed if valium is not helping for lower back Discharge Instructions Instructions: General Headache (ED) Additional Instructions: Please follow-up with neurology referral within the next week to further evaluate headache and to discuss findings on head CT. Please return to the emergency department he develop any worsening symptomatology such as worsening headache nausea vomiting weakness numbness change in speech or any other abnormal symptoms. Stand Alone Forms: Work Release Medical Decision Making 31-year-old male presents with left eye pain and left frontal headache over the past 4 days gradual onset intermittent in nature, does have a history of migraines or is atypical for his migraine headache, endorses symptomatology began during sexual activity, neurologically intact cranial nerves intact normal speech normal strength, nontoxic afebrile nonmeningeal, consider tension type headache versus atypical migraine versus vasospasm in the setting of sexual activity versus less likely cerebral aneurysm versus unlikely intracranial hemorrhage versus less likely CVA or TIA. Screening labs analgesia anti-inflammatory, CT CTA head neck. Close reassessment likely home with neurology follow-up 2: 43 patient resting comfortably feeling better after medications and rest. Neurologically intact. 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 Patient endorses that he was aware of what he describes as dill matter developmental issue that was noted upon a neurological evaluation when he was a child. Patient feels comfortable going home asymptomatic. Has been encouraged to follow-up with neurology, will provide referral. Discussed the benefit of MRI imaging at some point during his neurologic evaluation as an outpatient Given strict return precaution for any worsening symptomatology. HPI General Date/Time Provider Initiated Documentation: 11/24/21 00:58 . HPI Narrative: 31-year-old male presents with atypical left eye pain and frontal headache over the past 4 days intermittent in nature, denies nausea or vomiting denies change in vision denies weakness or numbness. Does have history of migraines however this is atypical for his migraine headaches. Of note patient first noted these symptoms during sexual intercourse endorses new relationship and increase sexual activity with his partner Related Data Home Medications Medication Instructions Recorded Confirmed sertraline 50 mg tablet 50 mg PO .QHS 05/10/21 11/24/21 topiramate 25 mg tablet 25 mg PO DAILY 05/10/21 11/24/21 diazepam 10 mg tablet (Valium) 10 mg PO TID PRN #60 tab 05/11/21 11/24/21 oxycodone 5 mg tablet 5 mg PO Q4H PRN #30 tab 05/11/21 11/24/21 cetirizine 10 mg tablet (Zyrtec) 10 mg PO DAILY PRN 11/24/21 11/24/21 metaxalone 800 mg tablet (Skelaxin) 800 mg PO TID PRN 11/24/21 11/24/21 Previous Rx's Medication Instructions Recorded diazepam 10 mg tablet (Valium) 10 mg PO TID PRN #60 tab 05/11/21 oxycodone 5 mg tablet 5 mg PO Q4H PRN #30 tab 05/11/21 Allergies Allergy/AdvReac Type Severity Reaction Status Date / Time seasonal Allergy Uncoded 11/24/21 01:01 General Stated Complaint: Headache MELA: 3 Review of Systems Narrative: Review of Systems Constitutional: negative Eyes: negative ENT: negative Cardiovascular: negative Respiratory: negative Gastrointestinal: negative : negative Musculoskeletal: negative Skin: negative Neurologic: Headache, eye pain Psych: negative PFSH All Active Problems (Updated 11/24/21 @ 02:48 by Elliot Mcfarland MD) Intractable back pain (Acute) Lumbar disc herniation (Acute) Headache (Acute) Abnormal CT of brain (Acute) Back pain (Acute) Medical History Depression Migraine Surgical History No significant past surgical history Social History Smoking/Tobacco Use Status: Former Tobacco Use Smoking risk assessment performed?: Yes Alcohol Intake: current Alcohol Intake frequency: holidays/special occasions only Substance use type: does not use Do you feel safe at home: Yes Do you feel safe in your relationship?: Yes Exam Narrative Exam Narrative: Physical Examination General: alert, awake, cooperative, resting comfortably, no acute distress HEENT: normocephalic, atraumatic; PERRL, EOM intact, conjunctiva normal; no nasal discharge; moist mucous membranes, oral and pharyngeal mucosa normal, tolerating secretions Neck: supple, trachea midline; full ROM Chest: normal to inspection Respiratory: normal respiratory effort, speaking in full sentences, clear to auscultation, no wheezing, rales or rhonchi Cardiac: regular rate, regular rhythm, S1S2 intact, no murmurs rubs or gallops GI: abdomen soft, non-tender, non-distended; no palpable mass or hepatosplenomegaly Skin: no lesions, rashes or trauma appreciated Neuro: AAOx3, normal speech, moving all extremities; cranial nerves II through XII intact, 5 out of 5 strength upper and lower extremities, no ataxia Psych: Appropriate mood and affect Course Vital Signs Vital signs: Vital Signs Temperature 36.7 C 11/24/21 00:53 Pulse 93 H 11/24/21 00:53 Respiratory Rate 14 11/24/21 00:53 Blood Pressure 131/84 11/24/21 00:53 Pulse Oximetry 98 11/24/21 00:53 Temperature 36.7 C 11/24/21 00:53 Temperature Source Skin 11/24/21 00:53 Pulse 93 H 11/24/21 00:53 Respiratory Rate 14 11/24/21 00:53 Respiratory Effort Non-Labored 11/24/21 00:57 Blood Pressure 131/84 11/24/21 00:53 Blood Pressure Position Sitting 11/24/21 00:53 Pulse Oximetry 98 11/24/21 00:53 Oxygen Delivery Method Room Air 11/24/21 00:53 Oxygen Flow Rate 0 11/24/21 00:53 Pain Level 8 11/24/21 00:57
[2021-11-24] MEDS: LORazepam 2 MG/ML VIAL 1 MG IVP (01:36)
[2021-11-24] MEDS: Metoclopramide 10 MG/2 ML VIAL IVP (01:36)
[2021-11-24] MEDS: Normal Saline 1,000 ML 1000 ML IV (01:37)
[2021-11-24] MEDS: Dexamethasone 10 MG/ML VIAL IVP (01:37)
[2021-11-24 01:52] LABS: Abs Immature Grans 0.02 10^3/uL (0.0-0.06); Absolute Basophil Count 0.05 10^3/uL (0.0-0.2); Absolute Eosinophil Count 0.33 10^3/uL (0.0-0.7); Absolute Lymphocyte Count 1.73 10^3/uL (1.2-3.4); Absolute Monocyte Count 0.91 10^3/uL (0.1-0.8); Basophils % 0.5; Eosinophils % 3.4; HCT 41.6 % (40.0-50.0); HGB 13.5 g/dL (13.5-17.5); Immature Grans % 0.2; Lymphocytes % 17.6; MCH 29.5 pg (27.0-33.0); MCHC 32.5 % (32.0-36.0); MCV 90.8 fL (80-95); MPV 11.8 fL (8.0-11.0); Monocytes % 9.2; Neutrophils % 69.1; Nucleated RBC 0 %; Platelet Count 309 10^3/uL (130-400); RBC 4.58 10^6/uL (4.36-5.78); RDW 12.5 % (11.8-14.1); RDW-SD 41.1 fL; WBC 9.84 10^3/uL (4.4-10.8)
[2021-11-24 02:12] LABS: ALT 55 U/L (16-63); AST 22 U/L (15-37); Albumin 4.3 g/dL (3.4-5.0); Alkaline Phosphatase 60 U/L (46-116); Anion Gap 8.8 mmol/L (3-11); BUN 17 mg/dL (7-18); Bilirubin, Total 0.3 mg/dL (0.2-1.0); CO2 27.2 mmol/L (21.0-32.0); CREATININE 0.8 mg/dL (0.70-1.30); Calcium 8.8 mg/dL (8.5-10.1); Chloride 103 mmol/L (98-107); Glucose 106 mg/dL (74-106); Potassium 3.6 mmol/L (3.5-5.1); Sodium 139 mmol/L (136-145); Total Protein 8.1 g/dL (6.4-8.2)
[2021-11-24] MEDS: Omnipaque 350 MG/ML 100 ML BTL IJ (02:20)
[2021-11-24] MEDS: Normal Saline Flush 10 ML SYR IVP (02:21)
--- NOTE | 2021-11-24 02:28 | DI.VRAD_ITS ---
PROCEDURE INFORMATION: Exam: CT Angiography Head With Contrast, Arteriography Exam date and time: 11/24/2021 1:57 AM Age: 31 years old Clinical indication: Pain; Patient HX: Atypical headache, left orbittal in nature TECHNIQUE: Imaging protocol: Computed tomography angiography of the head with contrast. Exam focused on the arteries. 3D rendering (Not supervised by radiologist): MIP and/or 3D reconstructed images were created by the technologist. Radiation optimization: All CT scans at this facility use at least one of these dose optimization techniques: automated exposure control; mA and/or kV adjustment per patient size (includes targeted exams where dose is matched to clinical indication); or iterative reconstruction. Contrast material: OMNIPAQUE 350; Contrast volume: 85 ml; Contrast route: INTRAVENOUS (IV); COMPARISON: No relevant prior studies available. FINDINGS: ANTERIOR CIRCULATION: Right internal carotid artery: Intracranial segment is patent with no significant stenosis. No aneurysm. Right middle cerebral artery: No occlusion or significant stenosis. No aneurysm. Right anterior cerebral artery: No occlusion or significant stenosis. No aneurysm. Left internal carotid artery: Intracranial segment is patent with no significant stenosis. No aneurysm. Left middle cerebral artery: No occlusion or significant stenosis. No aneurysm. Left anterior cerebral artery: No occlusion or significant stenosis. No aneurysm. POSTERIOR CIRCULATION: Right vertebral artery: No occlusion or significant stenosis. No aneurysm. Left vertebral artery: No occlusion or significant stenosis. No aneurysm. Basilar artery: No occlusion or significant stenosis. No aneurysm. Right posterior cerebral artery: circulation. No occlusion or significant stenosis. No aneurysm. Left posterior cerebral artery: No occlusion or significant stenosis. No aneurysm. Brain: Asymmetrical atrophy is seen within the left frontal lobe. Sub a pedal nodules are seen surrounding the left ventricle. Possible skills in cephaly along the medial aspect of the left posterior frontal parietal lobe. 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 The remaining ventricles are normal in size. Bones/joints: Unremarkable. No acute fracture. Soft tissues: Unremarkable. IMPRESSION: 1. No large vessel stenosis or occlusion within the intracranial arteries. 2. Multiple subependymal nodules, which may represent dill matter, which can be seen with a congenital migrational anomaly. 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 These findings can be seen with seizures. Consider further evaluation with an MRI of the brain with without contrast. PROCEDURE INFORMATION: Exam: CT Angiography Neck With Contrast Exam date and time: 11/24/2021 1:57 AM Age: 31 years old Clinical indication: Pain; Patient HX: Atypical headache, left orbittal in nature TECHNIQUE: Imaging protocol: Computed tomography angiography of the neck with contrast. 3D rendering (Not supervised by radiologist): MIP and/or 3D reconstructed images were created by the technologist. Radiation optimization: All CT scans at this facility use at least one of these dose optimization techniques: automated exposure control; mA and/or kV adjustment per patient size (includes targeted exams where dose is matched to clinical indication); or iterative reconstruction. Contrast material: OMNIPAQUE 350; Contrast volume: 85 ml; Contrast route: INTRAVENOUS (IV); COMPARISON: No relevant prior studies available. FINDINGS: Right common carotid artery: No stenosis. No dissection or occlusion. Right internal carotid artery: No stenosis of the extracranial segment. No dissection or occlusion. Right external carotid artery: No occlusion or stenosis of the origin. Left common carotid artery: No stenosis. No dissection or occlusion. Left internal carotid artery: No stenosis of the extracranial segment. No dissection or occlusion. Left external carotid artery: No occlusion or stenosis of the origin. Right vertebral artery: No stenosis. No dissection or occlusion. Left vertebral artery: No stenosis. No dissection or occlusion. Aorta: The great vessels of the level aortic arch opacify normally with contrast without stenosis, occlusion or dissection. Lymph nodes: A couple prominent lymph nodes are seen throughout the neck. The largest is seen within the right level 2A/3 station measuring 8 x 11 mm. Prominent lymph nodes are also seen within the some a debility a regions. Soft tissues: Normal. No significant soft tissue swelling. Bones/joints: No evidence for acute fracture. Lungs: The imaged lung apices are well aerated. IMPRESSION: 1. No hemodynamically significant stenosis, occlusion or dissection within the extracranial arteries. 2. Prominent lymph nodes within the neck, which may be reactive. Correlation with the patient's clinical exam findings and history is suggested. REFERENCES: NASCET CRITERIA. The degree of internal carotid artery stenosis is based on NASCET criteria. Normal is no stenosis. Mild is less than 50% stenosis. Moderate is 50-69% stenosis. Severe is 70% to 99% stenosis. Total occlusion is no detectable patent lumen. Dictated and Authenticated by: Camila Villalobos MD. Ordering:CLIF Zarate MD
[2021-11-24 02:59] VITALS: BP 131/67; PULSE 89; RESP 14; TEMP 36.6; O2SAT 97
== END 2021-11-24 03:20 | disposition home or self-care (01) ==
PROVIDERS: Emergency Provider Emergency Medicine
DX: R51.9 Headache, unspecified (principal); H57.12 Ocular pain, left eye; R94.02 Abnormal brain scan
CPT/HCPCS: 70496; 70498; 80053; 96361; 96374; 96375; 99285; 85025; 99284; J1100; J2060; J2765; J3490

== ENCOUNTER 2022-09-24 12:09 | Emergency (ER) | payer OTHER, SELFPAY ==
[2022-09-24 12:21] VITALS: BP 133/78; PULSE 95; RESP 16; TEMP 37.2; O2SAT 98
[2022-09-24 12:54] LABS: Abs Immature Grans 0.06 10^3/uL (0.0-0.06); Absolute Basophil Count 0.05 10^3/uL (0.0-0.2); Absolute Monocyte Count 1.07 10^3/uL (0.1-0.8); Basophils % 0.3; Eosinophils % 0.9; HCT 49.3 % (40.0-50.0); HGB 16.1 g/dL (13.5-17.5); Immature Grans % 0.3; Lymphocytes % 7.3; MCH 29.8 pg (27.0-33.0); MCHC 32.7 % (32.0-36.0); MCV 91 fL (80-95); MPV 11.7 fL (8.0-11.0); Monocytes % 6.2; Platelet Count 319 10^3/uL (130-400); RDW 12.8 % (11.8-14.1); RDW-SD 43.1 fL; WBC 17.24 10^3/uL (4.4-10.8)
[2022-09-24 13:00] LABS: Absolute Eosinophil Count 0.16 10^3/uL (0.0-0.7); Absolute Lymphocyte Count 1.26 10^3/uL (1.2-3.4); Absolute Neutrophil Count 14.65 10^3/uL (1.2-6.7)
--- NOTE | 2022-09-24 13:00 | DI.CT_ITS ---
Exam(s) CT ABDOMEN PELVIS W EXAM: CT ABDOMEN PELVIS W CLINICAL HISTORY: abd pain, 18 wbc. TECHNIQUE: Imaging Protocol: Axial computed tomography images with coronal and sagittal reformatted images were created and reviewed CONTRAST MATERIAL: Intravenous: Omnipaque-350 100cc Oral: None COMPARISON: CT CT BRAIN NECK CTA from 11/24/2021 FINDINGS: VISUALIZED LUNG BASES: No nodules nor pleural effusions evident. ABDOMEN: There is no ascites. The ileum is abnormal. Distal and mid I ileal bowel loops are slightly promine nt in size (2.5 cm) and are circumferentially edematous, exhibiting an enteritis pattern. This exten ds to the ileocecal valve. There does not appear to be obvious edema of the ascending colon. The ap pendix appears unremarkable. There is no evidence of bowel obstruction, free air, nor abscess. There is some generalized haziness in the mesentery, this predominantly around multiple small lymph m esentery nodes averaging 5-6 millimeters sized. In addition, LIVER: There are no focal hepatic lesions evident. No dilated intrahepatic ducts. GALLBLADDER/BILIARY: No obvious gallbladder pathology. CBD is not dilated. PANCREAS: No evidence of pancreatic mass nor dilatation of the pancreatic duct. SPLEEN: Spleen is not enlarged. No obvious intrasplenic lesions. Splenic and portal veins are paten t. ADRENALS: There are no significant adrenal masses. KIDNEYS:No cysts evident. No solid renal masses. No calculi nor hydronephrosis.. ABDOMINAL AORTA: Abdominal aorta is not enlarged. LYMPH NODES:There is no retroperitoneal nor paraaortic adenopathy. ABDOMINAL WALL: No evidence of significant anterior abdominal wall nor inguinal hernia. PELVIS: GI: No evidence of appendicitis.No evidence of sigmoid diverticulitis. LYMPH NODES: There is no intrapelvic nor inguinal adenopathy. REPRODUCTIVE: Prostate and seminal vesicles unremarkable. URINARY BLADDER: Uniform thickening wall most probably related to under distension. OSSEOUS: No fractures and no significant osseous lesions. Sacroiliac joints unremarkable. IMPRESSION: 1. The main finding here is abnormal circumferential edema of mid-distal small bowel ileum loops cons istent with enteritis pattern. This also involves the most distal terminal ileum but without obvious involvement of the cecum and ascending colon (and the appendix appears unremarkable.) There are mul tiple slightly prominent 5-6 millimeter lymph nodes in the mesentery with some surrounding fat strand ing in the mesentery. This may be reactive with respect of the small bowel findings. 2. No evidence of small bowel obstruction, free air, nor abscess. 3. No ascites. RADIATION DOSE DELIVERED: 895.83mGy.cm Total DLP DATA REPOSITORY: All CT scans at this facility are submitted to the National Radiology Data Registry (NRDR) Dose Index Registry (DIR) with the [employer] (A[employer]). RADIATION OPTIMIZATION: All CT scans at this facility use at least one of these dose optimization te chniques: automated exposure control; mA and/or kV adjustment per patient size (includes targeted exa ms where dose is matched to clinical indication); or iterative reconstruction.
[2022-09-24 13:10] LABS: ALT 62 U/L (16-63); AST 27 U/L (15-37); Albumin 5.2 g/dL (3.4-5.0); Alkaline Phosphatase 79 U/L (46-116); Anion Gap 9.6 mmol/L (3-11); BUN 13 mg/dL (7-18); Bilirubin, Total 0.7 mg/dL (0.2-1.0); CO2 26.4 mmol/L (21.0-32.0); CREATININE 0.8 mg/dL (0.70-1.30); Calcium 9.4 mg/dL (8.5-10.1); Chloride 103 mmol/L (98-107); Estimated GFR 119.84 (mL/min/1.73m2); Glucose 98 mg/dL (74-106); Lipase 23 U/L (16-77); Potassium 4.4 mmol/L (3.5-5.1); Sodium 139 mmol/L (136-145); Total Protein 9.5 g/dL (6.4-8.2)
--- NOTE | 2022-09-24 13:29 | W.ED.GENAD ---
Discharge Plan Disposition Patient Disposition: Home Condition: Stable Discharge Details Clinical Impression: Abdominal pain Primary Care Provider: Sammy Booker ED Provider: John Nguyen Home Meds and New Rx's Prescriptions: New prednisone 20 mg tablet 60 mg PO DAILY 4 Days Qty: 12 0RF ondansetron 4 mg tablet,disintegrating 4 mg PO TID Qty: 10 0RF Continued topiramate 25 mg tablet 25 mg PO DAILY cetirizine [Zyrtec] 10 mg Tablet 10 mg PO DAILY PRN omeprazole 20 mg Capsule,Delayed Release(Dr/Ec) 20 mg PO DAILY Discharge Instructions Instructions: Abdominal Pain (ED) Additional Instructions: Work-up today does not reveal any obvious emergent process. [id number] Benadryl as directed for rash. I would begin taking [id number]-ros-[id number] omeprazole once again. Zofran as directed. Prednisone as directed. Please watch for new or worsening symptoms and return to the ER for any concerns. Clear liquid diet, advance as tolerated. Please contact your primary care provider on Tuesday to discuss your ER visit need for outpatient reevaluation. Stand Alone Forms: Work Release Medical Decision Making 32-year-old gentleman who denies significant abdominal past medical history presents for abdominal pain, primarily epigastric and watery diarrhea that began early this morning. Denies recent sick contacts, bad food exposure or recent antibiotic use. Patient denies regular alcohol use. He does report having taken NSAIDs last week for potential gout. He has been off this medication for the past 3 days. Given his recent NSAIDs, certainly concern for gastritis and/or ulcer, certainly could be pancreatitis, biliary colic, appendicitis, etc. Plan to obtain IV access, give IV fluid, Zofran, GI cocktail and obtain routine screening laboratory values. White blood cell count of 17.24, electrolytes unremarkable. Creatinine 0.8 with a GFR of 119.84. LFTs and lipase all unremarkable. Patient does report some improvement with GI cocktail. Given his leukocytosis, tenderness, will obtain CT imaging for further evaluation. Patient reports modest improvement of his symptoms after the GI cocktail Patient returned from CT, reports mild itchy rash, hives to bilateral arms and back. Likely allergic reaction to contrast. Will provide IV fluids, Benadryl, Protonix and Zantac. No airway compromise. Awaiting CT results CT imaging does reveal slightly prominent mesenteric lymph nodes, findings consistent with enteritis, no evidence of small bowel obstruction, free air, abscess. No ascites. Findings discussed with patient and family. Patient reports hives are improving, almost completely resolved. Discussed CT findings. Nonsurgical. Will provide burst dose of steroids, patient will continue taking [id number]-[id number] Benadryl for his hives, and we discussed treatment such as [id number] Protonix for abdominal pain, I will provide a prescription of Zofran. Standard discharge and return precautions were provided. Patient understands, is agreeable to this plan, and has no additional questions or concerns upon discharge. This documentation was generated using [employer] system, please disregard any oddities of phrase or misspellings. Medical Records Medical records reviewed: Yes I reviewed the patient's medical records. Imaging Data Radiologic Study: Attestation: I personally reviewed and interpreted this imaging study as follows: Imaging: CT Scan Radiologist's impression: Exam(s) CT ABDOMEN PELVIS W EXAM: CT ABDOMEN PELVIS W CLINICAL HISTORY: abd pain, 18 wbc. TECHNIQUE: Imaging Protocol: Axial computed tomography images with coronal and sagittal reformatted images were created and reviewed CONTRAST MATERIAL: Intravenous: Omnipaque-350 100cc Oral: None COMPARISON: CT CT BRAIN NECK CTA from 11/24/2021 FINDINGS: VISUALIZED LUNG BASES: No nodules nor pleural effusions evident. ABDOMEN: There is no ascites. The ileum is abnormal. Distal and mid I ileal bowel loops are slightly prominent in size (2.5 cm) and are circumferentially edematous, exhibiting an enteritis pattern. This extends to the ileocecal valve. There does not appear to be obvious edema of the ascending colon. The appendix appears unremarkable. There is no evidence of bowel obstruction, free air, nor abscess. There is some generalized haziness in the mesentery, this predominantly around multiple small lymph mesentery nodes averaging 5-6 millimeters sized. In addition, LIVER: There are no focal hepatic lesions evident. No dilated intrahepatic ducts. GALLBLADDER/BILIARY: No obvious gallbladder pathology. CBD is not dilated. PANCREAS: No evidence of pancreatic mass nor dilatation of the pancreatic duct. SPLEEN: Spleen is not enlarged. No obvious intrasplenic lesions. Splenic and portal veins are patent. ADRENALS: There are no significant adrenal masses. KIDNEYS:No cysts evident. No solid renal masses. No calculi nor hydronephrosis.. ABDOMINAL AORTA: Abdominal aorta is not enlarged. LYMPH NODES:There is no retroperitoneal nor paraaortic adenopathy. ABDOMINAL WALL: No evidence of significant anterior abdominal wall nor inguinal hernia. PELVIS: GI: No evidence of appendicitis.No evidence of sigmoid diverticulitis. LYMPH NODES: There is no intrapelvic nor inguinal adenopathy. REPRODUCTIVE: Prostate and seminal vesicles unremarkable. URINARY BLADDER: Uniform thickening wall most probably related to under distension. OSSEOUS: No fractures and no significant osseous lesions. Sacroiliac joints unremarkable. IMPRESSION: 1. The main finding here is abnormal circumferential edema of mid-distal small bowel ileum loops consistent with enteritis pattern. This also involves the most distal terminal ileum but without obvious involvement of the cecum and ascending colon (and the appendix appears unremarkable.) There are multiple slightly prominent 5-6 millimeter lymph nodes in the mesentery with some surrounding fat stranding in the mesentery. This may be reactive with respect of the small bowel findings. 2. No evidence of small bowel obstruction, free air, nor abscess. 3. No ascites. Lab Data Lab results reviewed: Yes I reviewed the patient's lab results. Labs: Laboratory Tests Range/Units 09/24/22 09/24/22 09/24/22 12:47 12:47 13:45 WBC (4.4-10.8) 10^3/uL 17.24 H RBC (4.36-5.78) 10^6/uL 5.40 Hgb (13.5-17.5) g/dL 16.1 Hct (40.0-50.0) % 49.3 MCV (80-95) fL 91 MCH (27.0-33.0) pg 29.8 MCHC (32.0-36.0) % 32.7 RDW (11.8-14.1) % 12.8 Plt Count (130-400) 10^3/uL 319 MPV (8.0-11.0) fL 11.7 H Immature Gran % 0.3 Neutrophils % 85.0 Lymphocytes % 7.3 Monocytes % 6.2 Eosinophils % 0.9 Basophils % 0.3 Nucleated RBC % (0.0-0.3) % 0.0 Absolute Neutrophils (1.2-6.7) 10^3/uL 14.65 H Absolute Lymphocytes (1.2-3.4) 10^3/uL 1.26 Absolute Monocytes (0.1-0.8) 10^3/uL 1.07 H Absolute Eosinophils (0.0-0.7) 10^3/uL 0.16 Absolute Basophils (0.0-0.2) 10^3/uL 0.05 Sodium (136-145) mmol/L 139 Potassium (3.5-5.1) mmol/L 4.4 Chloride (98-107) mmol/L 103 Carbon Dioxide (21.0-32.0) mmol/L 26.4 Anion Gap (3-11) mmol/L 9.6 BUN (7-18) mg/dL 13 Creatinine (0.70-1.30) mg/dL 0.8 Est GFR (CKD-EPI 2020) (mL/min/1.73m2) 119.84 Glucose (74-106) mg/dL 98 Calcium (8.5-10.1) mg/dL 9.4 Total Bilirubin (0.2-1.0) mg/dL 0.7 AST (15-37) U/L 27 ALT (16-63) U/L 62 Alkaline Phosphatase (46-116) U/L 79 Total Protein (6.4-8.2) g/dL 9.5 H Albumin (3.4-5.0) g/dL 5.2 H Lipase (16-77) U/L 23 Urine Color (Yellow) Yellow Urine Clarity (Clear) Clear Urine pH (5-8) 5.5 Ur Specific Roberts (1.005-1.025) >= 1.030 H Urine Protein (Negative) mg/dL Negative Urine Ketones (Negative) mg/dL Negative Urine Blood (Negative) Negative Urine Nitrite (Negative) Negative Urine Bilirubin (Negative) Negative Urine Urobilinogen (Up TO 0.2) EU/dL 0.2 Ur Leukocyte Esterase (Negative) Negative Urine Glucose (Negative) mg/dL Negative HPI General Mode of arrival: ambulatory. Date/Time Provider Initiated Documentation: 09/24/22 12:33. Limitations to Documentation: no limitations. Information obtained by: patient and family. History of Present Illness 32 year old M presents to the emergency department with the chief complaint of Abd pain, described as moderate, with intensity rated at 7. Quality is described as aching and sharp, and is localized to the abdomen. Patient reports no radiation. Patient started experiencing this hour(s) (10) and it has been constant. No relieving factors improve symptom(s), No exacerbating factors reported . Patient notes nausea/vomiting and other (Diarrhea). Patient did receive the following treatments prior to arrival, other (Zofran) Related Data Home Medications Medication Instructions Recorded Confirmed topiramate 25 mg tablet 25 mg PO DAILY 05/10/21 09/24/22 cetirizine 10 mg tablet (Zyrtec) 10 mg PO DAILY PRN 11/24/21 09/24/22 omeprazole 20 mg capsule,delayed 20 mg PO DAILY 09/24/22 09/24/22 release ondansetron 4 mg disintegrating 4 mg PO TID #10 tabs 09/24/22 tablet prednisone 20 mg tablet 60 mg PO DAILY 4 days #12 tabs 09/24/22 Previous Rx's Medication Instructions Recorded ondansetron 4 mg disintegrating 4 mg PO TID #10 tabs 09/24/22 tablet prednisone 20 mg tablet 60 mg PO DAILY 4 days #12 tabs 09/24/22 Allergies Allergy/AdvReac Type Severity Reaction Status Date / Time Iodinated Contrast Media AdvReac Hives Unverified 09/24/22 14:35 seasonal Allergy Uncoded 01/20/22 12:55 General Stated Complaint: Abd Prob MELA: 3 Review of Systems Constitutional Constitutional: Denies fever(s) Cardiovascular Cardiovascular: Denies chest pain and Denies dyspnea Respiratory Respiratory: Denies cough and Denies dyspnea Gastrointestinal Gastrointestinal: Reports abdominal pain, Denies melena, Denies hematochezia, Reports diarrhea, Reports nausea and Reports vomiting Genitourinary Genitourinary: Denies dysuria and Denies testicular pain Musculoskeletal Musculoskeletal: Denies back pain Integumentary/Breasts Skin/Breast: Denies rash PFSH All Active Problems (Updated 09/24/22 @ 15:22 by DELORES Zelaya) Abdominal pain (Acute) Congenital brain anomaly (Acute) Primary headache associated with sexual activity (Acute) Intractable back pain (Acute) Lumbar disc herniation (Acute) Back pain (Acute) Medical History Depression Migraine Surgical History No significant past surgical history Social History Smoking/Tobacco Use Status: Former Tobacco Use Smoking risk assessment performed?: Yes Alcohol Intake: current Alcohol Intake frequency: holidays/special occasions only Substance use type: does not use Do you feel safe at home: Yes Do you feel safe in your relationship?: Yes Exam Const General: cooperative, healthy appearing and no acute distress Orientation: alert and awake [facility] Head: normal to inspection, normocephalic and atraumatic Face and sinus: normal facial exam Mouth: moist mucous membranes Eyes Conjunctivae: conjunctivae normal Neck Neck: normal visual inspection, full ROM, no meningeal signs, trachea midline and supple Resp Effort & Inspection: normal respiratory effort and able to speak in complete sentences Auscultation: clear to auscultation bilaterally Cardio Rate: regular rate Rhythm: regular rhythm GI Inspection: normal to inspection Palpation: soft, not firm, no guarding, no pulsatile masses and tender in the epigastrum; not at McBurney's point, Chaudhry's sign negative and with no rebound tenderness Auscultation: normal bowel sounds Back/Spine/Pelvis Back: no CVA tenderness and No back tenderness Skin General skin exam: no rashes or lesions noted Neuro General: patient alert, patient awake, moves all extremities and no focal motor deficits Cognition: normal cognition Speech: speech normal Gait: normal gait Sensory Exam: no sensory deficits noted Psych Appearance: grossly normal Mental Status: mental status grossly normal Course Vital Signs Vital signs: Vital Signs Temperature 37.2 C 09/24/22 12:21 Pulse 95 H 09/24/22 12:21 Respiratory Rate 16 09/24/22 12:21 Blood Pressure 133/78 09/24/22 12:21 Pulse Oximetry 98 09/24/22 12:21 Temperature 37.2 C 09/24/22 12:21 Pulse 95 H 09/24/22 12:21 Respiratory Rate 16 09/24/22 12:21 Respiratory Effort 09/24/22 13:00 Blood Pressure 133/78 09/24/22 12:21 Blood Pressure Position Sitting 09/24/22 12:21 Pulse Oximetry 98 09/24/22 12:21 Oxygen Delivery Method Room Air 09/24/22 12:21 Oxygen Flow Rate 0 09/24/22 12:21 Pain Level 7 09/24/22 13:00 Lab/Test Results Lab/Test Results: Laboratory Tests Range/Units 09/24/22 09/24/22 12:47 12:47 WBC (4.4-10.8) 10^3/uL 17.24 H RBC (4.36-5.78) 10^6/uL 5.40 Hgb (13.5-17.5) g/dL 16.1 Hct (40.0-50.0) % 49.3 MCV (80-95) fL 91 MCH (27.0-33.0) pg 29.8 MCHC (32.0-36.0) % 32.7 RDW (11.8-14.1) % 12.8 Plt Count (130-400) 10^3/uL 319 MPV (8.0-11.0) fL 11.7 H Immature Gran % 0.3 Neutrophils % 85.0 Lymphocytes % 7.3 Monocytes % 6.2 Eosinophils % 0.9 Basophils % 0.3 Nucleated RBC % (0.0-0.3) % 0.0 Absolute Neutrophils (1.2-6.7) 10^3/uL 14.65 H Absolute Lymphocytes (1.2-3.4) 10^3/uL 1.26 Absolute Monocytes (0.1-0.8) 10^3/uL 1.07 H Absolute Eosinophils (0.0-0.7) 10^3/uL 0.16 Absolute Basophils (0.0-0.2) 10^3/uL 0.05 Sodium (136-145) mmol/L 139 Potassium (3.5-5.1) mmol/L 4.4 Chloride (98-107) mmol/L 103 Carbon Dioxide (21.0-32.0) mmol/L 26.4 Anion Gap (3-11) mmol/L 9.6 BUN (7-18) mg/dL 13 Creatinine (0.70-1.30) mg/dL 0.8 Est GFR (CKD-EPI 2020) (mL/min/1.73m2) 119.84 Glucose (74-106) mg/dL 98 Calcium (8.5-10.1) mg/dL 9.4 Total Bilirubin (0.2-1.0) mg/dL 0.7 AST (15-37) U/L 27 ALT (16-63) U/L 62 Alkaline Phosphatase (46-116) U/L 79 Total Protein (6.4-8.2) g/dL 9.5 H Albumin (3.4-5.0) g/dL 5.2 H Lipase (16-77) U/L 23
[2022-09-24] MEDS: Normal Saline 1,000 ML 1000 ML IV ×2 (13:38→14:27)
[2022-09-24] MEDS: Omnipaque 350 MG/ML 100 ML BTL IJ (13:57)
[2022-09-24] MEDS: Normal Saline - Diluent 50 ML VIAL IV (13:58)
[2022-09-24] MEDS: Normal Saline Flush 10 ML SYR IVP (13:59)
[2022-09-24 14:01] LABS: Bilirubin Negative (Negative); Blood Negative (Negative); Clarity Clear (Clear); Glucose Negative (Negative); Ketones Negative (Negative); Leukocyte Esterase Negative (Negative); Nitrite Negative (Negative); Specific Gravity >= 1.030 (1.005-1.025); Urobilinogen 0.2 EU/dL (Up TO 0.2); pH 5.5 (5-8)
[2022-09-24] MEDS: Famotidine 20 MG/2 ML VIAL IVP (14:24)
[2022-09-24] MEDS: Pantoprazole 40 MG VIAL IVP (14:24)
[2022-09-24] MEDS: diphenhydrAMINE 50 MG/ML VIAL IVP (14:24)
--- NOTE | 2022-09-24 14:31 | NUR.NOTE ---
Nursing Note: Around 1420 patient reports having hives, all over arms, head legs and back. MD aware and IVP Benadryl was ordered and given. Will cont to monitor.
[2022-09-24 14:51] VITALS: BP 131/75; PULSE 75; RESP 18; TEMP 36.7; O2SAT 98
[2022-09-24] MEDS: predniSONE 20 MG TAB 60 MG PO (15:31)
== END 2022-09-24 16:09 | disposition home or self-care (01) ==
PROVIDERS: Emergency Provider Physician Assistant; PCP Neuromusculoskeletal Medicine & OMM
DX: R10.13 Epigastric pain (principal); D72.829 Elevated white blood cell count, unspecified
CPT/HCPCS: 80053; 83690; 96361; 96374; 96375; 99285; 74177; 81003; 85025; 99284; J1200; J3490; J7512

== ENCOUNTER 2022-12-17 18:08 | Emergency (ER) | payer SELFPAY ==
[2022-12-17 18:20] VITALS: BP 143/82; PULSE 88; RESP 16; TEMP 36.8; O2SAT 97
--- NOTE | 2022-12-17 18:40 | ED.GENADUL_ITS ---
Discharge Plan Disposition Patient Disposition: Home Discharge Details Clinical Impression: Acute sore throat Primary Care Provider: Sammy Booker ED Provider: Susy Gomez Home Meds and New Rx's Prescriptions: New amoxicillin-pot clavulanate 875-125 mg tablet 1 tab PO BID 7 Days Qty: 14 0RF Rx Instructions: Take 1 tablet twice daily for the next 7 days. No Action topiramate 25 mg tablet 25 mg PO DAILY cetirizine [Zyrtec] 10 mg Tablet 10 mg PO DAILY PRN omeprazole 20 mg Capsule,Delayed Release(Dr/Ec) 20 mg PO DAILY ondansetron 4 mg tablet,disintegrating 4 mg PO TID Qty: 10 0RF Discharge Instructions Instructions: Pharyngitis (ED) Additional Instructions: Take the antibiotics with yogurt or probiotic as directed. Gargle with warm salt water up to 3 times daily as needed. Please take Tylenol or Ibuprofen with food every 4-6 hours as needed for pain and swelling. Follow up with primary care provider in 3-5 days. Return to ED sooner if any worsening or concerns. Increase oral fluids. Stand Alone Forms: Work Release Referrals: Sammy Booker [Primary Care Provider] - 5 days Medical Decision Making Patient does have some exudates noted on the right side however the rapid strep is negative we will treat due to symptoms. Discussed warm salt water gargles and home care verbalized understanding. This text was generated using Siterraation system, please disregard any oddities of phrase or misspellings. HPI General Mode of arrival: ambulatory . Date/Time Provider Initiated Documentation: 12/17/22 18:13 . Limitations to Documentation: no limitations . Information obtained by: patient, RN notes reviewed and old records reviewed . HPI Narrative: 32-year-old male presents to the ER with chief complaint of right-sided throat pain with white patches which he noticed today. Reports it hurts to swallow. Does have a history of strep throat. His rapid strep upon arrival is negative. Related Data Home Medications Medication Instructions Recorded Confirmed topiramate 25 mg tablet 25 mg PO DAILY 05/10/21 12/17/22 cetirizine 10 mg tablet (Zyrtec) 10 mg PO DAILY PRN 11/24/21 12/17/22 omeprazole 20 mg capsule,delayed 20 mg PO DAILY 09/24/22 12/17/22 release ondansetron 4 mg disintegrating 4 mg PO TID #10 tabs 09/24/22 12/17/22 tablet amoxicillin 875 mg-potassium 1 tab PO BID 7 days #14 tabs 12/17/22 clavulanate 125 mg tablet Previous Rx's Medication Instructions Recorded ondansetron 4 mg disintegrating 4 mg PO TID #10 tabs 09/24/22 tablet amoxicillin 875 mg-potassium 1 tab PO BID 7 days #14 tabs 12/17/22 clavulanate 125 mg tablet Allergies Allergy/AdvReac Type Severity Reaction Status Date / Time Iodinated Contrast Media AdvReac Hives Unverified 12/17/22 18:22 seasonal Allergy Uncoded 12/17/22 18:22 General Stated Complaint: Sorethroat MELA: 4 Review of Systems All systems reviewed & are unremarkable except as noted in HPI and below ENT Ears, Nose, Mouth, and Throat: Reports sore throat Cardiovascular Cardiovascular: Denies dyspnea Respiratory Respiratory: Denies cough, Denies hemoptysis, Denies dyspnea and Denies stridor PFSH All Active Problems (Updated 12/17/22 @ 18:54 by Susy Gomez NP) Acute sore throat (Acute) Congenital brain anomaly (Acute) Primary headache associated with sexual activity (Acute) Intractable back pain (Acute) Lumbar disc herniation (Acute) Back pain (Acute) Medical History Depression Migraine Surgical History No significant past surgical history Social History Smoking/Tobacco Use Status: Former Tobacco Use Smoking risk assessment performed?: Yes Alcohol Intake: current Alcohol Intake frequency: holidays/special occasions only Drug use: Never Substance use type: does not use Do you feel safe at home: Yes Do you feel safe in your relationship?: Yes Exam HENMT Teeth and gingiva: dentition normal Throat: uvula midline, abnormal tonsil on the right exudates and posterior oropharynx abnormal erythema Course Vital Signs Vital signs: Vital Signs Temperature 36.8 C 12/17/22 18:20 Pulse 88 12/17/22 18:20 Respiratory Rate 16 12/17/22 18:20 Blood Pressure 143/82 H 12/17/22 18:20 Pulse Oximetry 97 12/17/22 18:20 Temperature 36.8 C 12/17/22 18:20 Temperature Source Temporal Artery Scan 12/17/22 18:20 Pulse 88 12/17/22 18:20 Respiratory Rate 16 12/17/22 18:20 Respiratory Effort Normal 12/17/22 18:21 Blood Pressure 143/82 H 12/17/22 18:20 Blood Pressure Position Sitting 12/17/22 18:20 Pulse Oximetry 97 12/17/22 18:20 Oxygen Delivery Method Room Air 12/17/22 18:20 Oxygen Flow Rate 0 12/17/22 18:20 Pain Level 6 12/17/22 18:20 Lab/Test Results Lab/Test Results: 12/17/22 18:15 Tonsil - Not Specified Group A Streptococcus Culture - Pending POC Strep Test-DAVI(Rapid) Start: 12/17/22 18:13 Freq: .Rapid Strep Test Status: Active Protocol: Document 12/17/22 18:25 [facility] (Rec: 12/17/22 18:25 N[facility] [id number]) Strep test-DAVI(Rapid)-POC POC-Strep test-DAVI (Rapid) Negative POC-Strep test-DAVI (Rapid) Negative PAWSS Have you Been Recently Intoxicated or Drunk Within the Last 30 days?: No Have you Ever Experienced Previous Episodes of Alcohol Withdrawal?: No Have you ever Experienced Withdrawal Seizures?: No Have you ever Experienced Delirium Tremens(DT)s?: No Have you ever undergone Alcohol Rehabilitation Treatment (i.e, inpt ot outpatient treatment programs)?: No Have you ever Experienced Blackouts?: No Have you ever Combined Alcohol with other Downers within the last 90 days?: No Have you ever Combined Alcohol with any other Substance of Abuse during the last 90 days?: No Result: 0
[2022-12-17] MEDS: Amox. 875/Clav. 125, 2 TABS/BTL 1 TAB PO (18:57)
[2022-12-17] MEDS: Amoxicillin 875/Clav. 125 TAB PO (18:58)
[2022-12-17 19:10] VITALS: BP 129/83; PULSE 102; RESP 22; TEMP 36.7; O2SAT 96
--- NOTE | 2022-12-18 18:16 | NUR.NOTE ---
Nursing Note: Patient called asking if RX could be send efax to [facility]. I spoke with Susy Gomez and she stated she would do this.
== END 2022-12-17 19:10 | disposition home or self-care (01) ==
PROVIDERS: Emergency Provider Registered Nurse Emergency; PCP Neuromusculoskeletal Medicine & OMM
DX: J02.9 Acute pharyngitis, unspecified (principal)
CPT/HCPCS: 87880; 99283; 87081; 99284

== ENCOUNTER 2023-02-02 16:16 | Emergency (ER) | payer BC, SELFPAY ==
[2023-02-02] VITALS (11 sets, daily range): BP systolic 139; BP diastolic 80; PULSE 94–101; RESP 15–30; TEMP 36.9; O2SAT 98
--- NOTE | 2023-02-02 16:15 | RT.EKG_ITS ---
APPROVED REPORT Exam: Resting ECG Reason for Exam: chest pain Patient Location: E HR:101 bpm ECG Measurements Heart Rate 101 AXIS NV 175 P 38 QRSd 106 QRS 12 QT 352 T 15 QTc 457 Conclusion Sinus tachycardia...rate> 99
--- NOTE | 2023-02-02 16:30 | DI.RAD_ITS ---
Exam(s) XR CHEST 2V PA LATERAL EXAM: XR CHEST 2V PA LATERAL CLINICAL HISTORY: chest pain. TECHNIQUE: 2D digital imaging was performed. COMPARISON: No exams were available for comparison FINDINGS: 2 views: Heart size is normal. The mediastinum is not widened. Lungs are clear. No infiltrates nor pleural effusions. IMPRESSION: No acute pulmonary findings. DATA REPOSITORY: RADIATION DOSE DELIVERED:
--- NOTE | 2023-02-02 16:37 | ED.GENADUL_ITS ---
Discharge Plan Disposition Patient Disposition: Home Condition: Improving Discharge Details Clinical Impression: Chest pain Primary Care Provider: Sammy Booker ED Provider: eTvin Cross Home Meds and New Rx's Prescriptions: Continued topiramate 25 mg tablet 25 mg PO DAILY cetirizine [Zyrtec] 10 mg Tablet 10 mg PO DAILY PRN omeprazole 20 mg Capsule,Delayed Release(Dr/Ec) 20 mg PO DAILY ondansetron 4 mg tablet,disintegrating 4 mg PO TID Qty: 10 0RF Discharge Instructions Instructions: Chest Pain (ED) Additional Instructions: Please return immediately to the emergency department for any new or significant worsening of symptoms.. Otherwise follow-up up with your primary care provider for reassessment and further discussion of outpatient testing as needed. Take your normally prescribed daily medications. Referrals: Sammy Booker [Primary Care Provider] - 1 week Medical Decision Making Patient presenting to the emergency department for chief complaint of chest pa in. Patient reports that he was laying in bed approximately 2 hours prior to arrival when he started having significant sharp aching chest pain to the left side of his chest with some radiation of it into his shoulder blade and anterior shoulder. Patient denies all other symptoms, denies injury or trauma, rash or lesion, pleurisy. Patient has no cardiac history but there is a family history of coronary artery disease. Patient denies any increase or change in caffeine intake nicotine or other substances. Exam is unremarkable for any acute findings. We will plan on checking patient's labs chest x-ray and EKG. Pending results we will give patient 324 of aspirin. Review of vital signs shows normal tensive patient that not hypoxic, normal respirations, afebrile, slight tachycardia noted. Please see physician interpretation for full interpretation of EKG but upon my review patient is in sinus tachycardia, rate of 101 no obvious acute ischemic findings are noted. We will continue to monitor It patient's labs and he does have a elevated WBC of 12.39, neutrophils are elevated along with lymphocytes otherwise unremarkable CBC. CMP does show low calcium of 8.1 and low mag of 1.7 which we will orally replete initial troponin is nondetected negative although the labs are within normal range. D-dimer is also negative with result of 160. Reviewed chest x-ray along with radiologist interpretation that shows no acute findings. Review of second troponin also shows nondetectable negative result. Reassessed patient patient states that he is now pain-free with no further discomfort will have patient follow-up with primary care provider for further discussion of outpatient testing as needed or return the emergency department for new or worsening symptoms. After discussion of diagnosis and plan of care patient has no further needs, questions, or concerns and states clear understanding to return to the emergency department for any worsening symptoms. This documentation was generated using FeedV[employer] dictation system, please disregard any oddities of phrase or misspellings. Imaging Data Radiologic Study: Imaging: X-Ray Radiologist's impression: Exam(s) XR CHEST 2V PA LATERAL EXAM: XR CHEST 2V PA LATERAL CLINICAL HISTORY: chest pain. TECHNIQUE: 2D digital imaging was performed. COMPARISON: No exams were available for comparison FINDINGS: 2 views: Heart size is normal. The mediastinum is not widened. Lungs are clear. No infiltrates nor pleural effusions. HPI General Mode of arrival: ambulatory . Date/Time Provider Initiated Documentation: 02/02/23 16:17 . Limitations to Documentation: no limitations . Information obtained by: patient and RN notes reviewed . History of Present Illness 32 year old M presents to the emergency department with the chief complaint of Chest pain, described as moderate, Quality is described as aching, and is localized to the chest. Patient extremity. Patient started experiencing this hour(s) (2) and it has been constant. No relieving factors improve symptom(s), No exacerbating factors reported . Patient notes no other symptoms.. Patient did receive the following treatments prior to arrival, none Related Data Home Medications Medication Instructions Recorded Confirmed topiramate 25 mg tablet 25 mg PO DAILY 05/10/21 02/02/23 cetirizine 10 mg tablet (Zyrtec) 10 mg PO DAILY PRN 11/24/21 02/02/23 omeprazole 20 mg capsule,delayed 20 mg PO DAILY 09/24/22 02/02/23 release ondansetron 4 mg disintegrating 4 mg PO TID #10 tabs 09/24/22 02/02/23 tablet Previous Rx's Medication Instructions Recorded ondansetron 4 mg disintegrating 4 mg PO TID #10 tabs 09/24/22 tablet Allergies Allergy/AdvReac Type Severity Reaction Status Date / Time Iodinated Contrast Media AdvReac Hives Unverified 02/02/23 16:24 seasonal Allergy Uncoded 06/14/23 16:24 General Stated Complaint: Chest Pain MELA: 2 Review of Systems Constitutional Constitutional: Denies chills, Denies fever(s) and Denies malaise Cardiovascular Cardiovascular: Reports as per HPI, Reports chest pain, Denies chest pain with activity, Denies syncope, Denies irregular heart rhythm, Denies palpitations and Denies dyspnea Respiratory Respiratory: Denies cough, Denies hemoptysis and Denies dyspnea Gastrointestinal Gastrointestinal: Denies abdominal pain, Denies nausea and Denies vomiting Neurologic Neurologic: Denies syncope Psychiatric Psychiatric: Denies anxiety Endocrine Endocrine: Denies palpitations PFSH All Active Problems (Updated 02/02/23 @ 20:04 by Tevin Cross NP) Chest pain (Acute) Congenital brain anomaly (Acute) Primary headache associated with sexual activity (Acute) Intractable back pain (Acute) Lumbar disc herniation (Acute) Back pain (Acute) Medical History Depression Migraine Surgical History No significant past surgical history Social History Smoking/Tobacco Use Status: Former Tobacco Use Smoking risk assessment performed?: Yes Alcohol Intake: current Alcohol Intake frequency: holidays/special occasions only Drug use: Never Substance use type: does not use Do you feel safe at home: Yes Do you feel safe in your relationship?: Yes Exam Const General: cooperative, healthy appearing, comfortable, no acute distress, not diaphoretic and not ill appearing Nutritional Appearance: average body habitus Orientation: alert, awake and oriented x3 Limitations: mental status not altered Neck Neck: normal visual inspection, full ROM, trachea midline, supple and no anterior neck swelling Carotids: normal carotid upstroke and no bruits Chest Chest: normal inspection of the chest Resp Effort & Inspection: normal respiratory effort and able to speak in complete sentences Auscultation: clear to auscultation bilaterally Cardio Jugular venous pressure: no JVD Palpation: normal PMI Rate: regular rate Rhythm: regular rhythm Heart Sounds: S1 normal, S2 normal, no click, no gallops, no murmurs and no rubs Bruits: no abdominal aortic bruits and no carotid bruits Pulses: radial pulses present bilaterally 2+ GI Inspection: normal to inspection Palpation: soft, no aortic enlargement, no pulsatile masses and nontender Auscultation: normal bowel sounds Skin General skin exam: no rashes or lesions noted Neuro General: patient alert, patient awake, patient oriented x3, tone normal and moves all extremities Course Vital Signs Vital signs: Vital Signs Temperature 36.9 C 02/02/23 16:20 Pulse 94 H 02/02/23 16:20 Respiratory Rate 15 02/02/23 16:20 Blood Pressure 139/80 02/02/23 16:20 Pulse Oximetry 98 02/02/23 16:20 Temperature 36.9 C 02/02/23 16:20 Temperature Source Oral 02/02/23 16:20 Pulse 94 H 02/02/23 16:20 Respiratory Rate 15 02/02/23 16:20 Respiratory Effort Normal 02/02/23 16:22 Blood Pressure 139/80 02/02/23 16:20 Blood Pressure Position Sitting 02/02/23 16:20 Pulse Oximetry 98 02/02/23 16:20 Oxygen Delivery Method Room Air 02/02/23 16:20 Oxygen Flow Rate 0 02/02/23 16:20 Pain Level 6 02/02/23 16:20
[2023-02-02 17:05] LABS: Abs Immature Grans 0.05 10^3/uL (0.0-0.06); Absolute Basophil Count 0.02 10^3/uL (0.0-0.2); Absolute Eosinophil Count 0.14 10^3/uL (0.0-0.7); Absolute Monocyte Count 0.55 10^3/uL (0.1-0.8); Absolute Neutrophil Count 10.73 10^3/uL (1.2-6.7); Basophils % 0.2; Eosinophils % 1.1; HCT 41.7 % (40.0-50.0); Immature Grans % 0.4; Lymphocytes % 7.3; MCH 30.3 pg (27.0-33.0); MCHC 33.6 % (32.0-36.0); MCV 90 fL (80-95); MPV 11.9 fL (8.0-11.0); Monocytes % 4.4; Neutrophils % 86.6; Platelet Count 265 10^3/uL (130-400); RBC 4.62 10^6/uL (4.36-5.78); RDW-SD 42.7 fL; WBC 12.39 10^3/uL (4.4-10.8)
[2023-02-02 17:09] LABS: ALT 55 U/L (16-63); AST 21 U/L (15-37); Albumin 4.2 g/dL (3.4-5.0); Alkaline Phosphatase 66 U/L (46-116); Anion Gap 9.8 mmol/L (3-11); BUN 15 mg/dL (7-18); Bilirubin, Total 0.7 mg/dL (0.2-1.0); CO2 26.2 mmol/L (21.0-32.0); CREATININE 0.8 mg/dL (0.70-1.30); Calcium 8.1 mg/dL (8.5-10.1); Chloride 104 mmol/L (98-107); Estimated GFR 119.84 (mL/min/1.73m2); Glucose 93 mg/dL (74-106); Magnesium 1.7 mg/dL (1.8-2.4); Potassium 3.6 mmol/L (3.5-5.1); Sodium 140 mmol/L (136-145); Total Protein 8.1 g/dL (6.4-8.2); Troponin I < 50 ng/L (<or=60)
[2023-02-02 17:25] LABS: D-Dimer 160 ng/mlFEU (<500)
[2023-02-02] MEDS: Calcium Carbonate *TUMS* 500 MG CHEW 1000 MG PO (17:28)
[2023-02-02] MEDS: Aspirin 81 MG CHEW 324 MG CH (17:28)
[2023-02-02] MEDS: Magnesium Oxide 400 MG TAB PO (17:28)
[2023-02-02 19:44] LABS: Troponin I < 50 ng/L (<or=60)
--- NOTE | 2023-02-02 20:08 | NUR.NOTE ---
Pt referral placed with [facility] per [place] for F/U of chest pain within 1 week.
--- NOTE | 2023-02-03 09:31 | PDOC.CMACT ---
Date of service: 02/03/23 Time of Service: 09:31 Care Management Activity Note Activity Note Text Activity Note Text: Nelson is seen in the ED for chest pain. At the request of ED provider, CM contacts his PCP (Sammy Booker DO) via fax to request that a follow up appointment be scheduled for patient. He has BCBS for insurance.
--- NOTE | 2023-02-04 14:19 | NUR.NOTE ---
Nursing Note: Accessed patient chart to determine how many EKG orders were in the chart from the ED. There was an outstanding EKG in ordered status. There are no EKG's in the [employer] system that are outstanding. EKG order was deleted.
== END 2023-02-02 20:12 | disposition home or self-care (01) ==
PROVIDERS: Emergency Provider Nurse Practitioner Family; PCP Neuromusculoskeletal Medicine & OMM
DX: R07.9 Chest pain, unspecified (principal)
CPT/HCPCS: 80053; 93005; 99284; 71046; 83735; 84484; 85025; 85379; 93010; 99283

== ENCOUNTER 2023-03-13 20:10 | Emergency (ER) | payer BC, SELFPAY ==
[2023-03-13 20:33] VITALS: BP 148/93; PULSE 86; RESP 14; TEMP 37.1; O2SAT 98
--- NOTE | 2023-03-13 22:18 | ED.GENADUL_ITS ---
Discharge Plan Disposition Patient Disposition: Home Discharge Details Clinical Impression: Back pain Primary Care Provider: Sammy Booker ED Provider: Tevin Cross Home Meds and New Rx's Prescriptions: New methocarbamol 500 mg tablet 500 mg PO TID PRN (Reason: muscle spasm) Qty: 15 0RF Continued topiramate 25 mg tablet 25 mg PO DAILY cetirizine [Zyrtec] 10 mg Tablet 10 mg PO DAILY PRN omeprazole 20 mg Capsule,Delayed Release(Dr/Ec) 20 mg PO DAILY ondansetron 4 mg tablet,disintegrating 4 mg PO TID Qty: 10 0RF Discharge Instructions Instructions: Back Pain (ED) Additional Instructions: Please use caution with any driving or use of firearms or heavy machinery while taking the limited supply of narcotic or muscle relaxers. Otherwise you may perform activities as tolerated but is recommended that you minimize any heavy lifting, bending or twisting. Return to the emergency department for any new or significant worsening of your symptoms otherwise follow-up with primary care provider if not improving Referrals: Sammy Booker [Primary Care Provider] - 1 week (if not improving) Discharge Data Discharge Date/Time-TO BE ENTERED AT DEPARTURE: 03/13/23 22:56 Medical Decision Making History of back pain and herniated disc, bent over 5 days ago and started noticing some worsening pain and discomfort since. Primary care provider put patient on NSAIDs and Flexeril which is not helping. He did have leftover Tylenol 3's that also have not been helping. Patient denies all other symptoms that would be worrisome for life-threatening back pain. LOW risk for ABDOMINAL AORTIC ANEURYSM, CAUDA EQUINA SYNDROME, EPIDURAL MASS LESION, SPINAL STENOSIS, OR HERNIATED DISK CAUSING SEVERE STENOSIS, thus I consider the discharge disposition reasonable. Patient was given Depo-Medrol, limited supply of narcotics, and prescription for methocarbamol to see if this helps his symptoms better. We have discussed the diagnosis and risks, and we agree with discharging home to follow-up with their primary doctor. We also discussed returning to the Emergency Department immediately if new or worsening symptoms occur. We have discussed the symptoms which are most concerning (e.g., saddle anesthesia, urinary or bowel incontinence or retention, changing or worsening pain) that necessitate immediate return. After discussion of diagnosis and plan of care patient has no further needs, questions, or concerns and states clear understanding to return to the emergency department for any worsening symptoms. This documentation was generated using the [employer] dictation system, please disregard any oddities of phrase or misspellings. HPI General Mode of arrival: ambulatory . Date/Time Provider Initiated Documentation: 03/13/23 21:01 . Limitations to Documentation: no limitations . Information obtained by: patient and RN notes reviewed . History of Present Illness 32 year old M presents to the emergency department with the chief complaint of Back pain, described as moderate and severe, Quality is described as sharp, and is localized to the back. Patient extremity. Patient started experiencing this week(s) (1) and it has been constant. No relieving factors improve symptom(s), Movement worsens symptoms . Patient did receive the following treatments prior to arrival, NSAID Related Data Home Medications Medication Instructions Recorded Confirmed topiramate 25 mg tablet 25 mg PO DAILY 05/10/21 02/02/23 cetirizine 10 mg tablet (Zyrtec) 10 mg PO DAILY PRN 11/24/21 02/02/23 omeprazole 20 mg capsule,delayed 20 mg PO DAILY 09/24/22 02/02/23 release ondansetron 4 mg disintegrating 4 mg PO TID #10 tabs 09/24/22 02/02/23 tablet methocarbamol 500 mg tablet 500 mg PO TID PRN muscle spasm #15 03/13/23 tabs Previous Rx's Medication Instructions Recorded ondansetron 4 mg disintegrating 4 mg PO TID #10 tabs 09/24/22 tablet methocarbamol 500 mg tablet 500 mg PO TID PRN muscle spasm #15 03/13/23 tabs Allergies Allergy/AdvReac Type Severity Reaction Status Date / Time Iodinated Contrast Media AdvReac Hives Unverified 03/13/23 22:42 seasonal Allergy Uncoded 03/13/23 22:42 General Stated Complaint: Nk/Back Pain MELA: 3 Review of Systems Constitutional Constitutional: Denies chills and Denies fever(s) Cardiovascular Cardiovascular: Denies chest pain and Denies dyspnea on exertion Respiratory Respiratory: Denies cough and Denies dyspnea on exertion Gastrointestinal Gastrointestinal: Denies abdominal pain, Denies change in bowel habits, Denies diarrhea, Denies nausea and Denies vomiting Genitourinary Genitourinary: Denies difficulty urinating and Denies urinary incontinence Musculoskeletal Musculoskeletal: Reports as per HPI and Reports back pain Neurologic Neurologic: Denies sensory deficit PFSH All Active Problems (Updated 03/13/23 @ 22:18 by Tevin Cross NP) Congenital brain anomaly (Acute) Primary headache associated with sexual activity (Acute) Intractable back pain (Acute) Lumbar disc herniation (Acute) Back pain (Acute) Medical History Depression Migraine Surgical History No significant past surgical history Social History Smoking/Tobacco Use Status: Former Tobacco Use Smoking risk assessment performed?: Yes Alcohol Intake: current Alcohol Intake frequency: holidays/special occasions only Drug use: Never Substance use type: does not use Do you feel safe at home: Yes Do you feel safe in your relationship?: Yes Exam Const General: cooperative and no acute distress Orientation: alert, awake and oriented x3 Neck Neck: normal visual inspection, full ROM and no meningeal signs Resp Effort & Inspection: normal respiratory effort Auscultation: clear to auscultation bilaterally Cardio Rate: regular rate Rhythm: regular rhythm Heart Sounds: S1 normal and S2 normal Back/Spine/Pelvis Thoracic/Lumbar Spine: pain with thoraco-lumbar ROM, paraspinal tenderness, thoraco-lumbar ROM limited, No thoracic spinal tenderness, lumbar spinal tenderness and straight leg raise positive Pelvis: no pain with anterior-posterior compression, no pain with lateral compression and buttock tenderness bilaterally Sacroiliac joints: on the left tender to palpation Neuro General: patient alert, patient awake and patient oriented x3 DTR's: Rt Patellar: 2+, Lt Patellar: 2+, Rt Ankle: 2+ and Lt Ankle: 2+ Course Vital Signs Vital signs: Vital Signs Temperature 37.1 C 03/13/23 20:33 Pulse 86 03/13/23 20:33 Respiratory Rate 14 03/13/23 20:33 Blood Pressure 148/93 H 03/13/23 20:33 Pulse Oximetry 98 03/13/23 20:33 Temperature 37.1 C 03/13/23 20:33 Temperature Source Temporal Artery Scan 03/13/23 20:33 Pulse 86 03/13/23 20:33 Respiratory Rate 14 03/13/23 20:33 Blood Pressure 148/93 H 03/13/23 20:33 Blood Pressure Position Sitting 03/13/23 20:33 Pulse Oximetry 98 03/13/23 20:33 Oxygen Delivery Method Room Air 03/13/23 20:33 Oxygen Flow Rate 0 03/13/23 20:33 Pain Level 8 03/13/23 20:33
[2023-03-13] MEDS: Methocarbamol 500 MG TAB PO (22:41)
[2023-03-13] MEDS: methylPREDNISolone ACETATE 80 MG/ML VIAL IM (22:41)
[2023-03-13] MEDS: oxyCODONE 5 MG TAB PO (22:41)
[2023-03-13 22:42] VITALS: BP 138/88; PULSE 80; RESP 14; O2SAT 98
== END 2023-03-13 22:56 | disposition home or self-care (01) ==
PROVIDERS: Emergency Provider Nurse Practitioner Family; PCP Neuromusculoskeletal Medicine & OMM
DX: M54.50 Low back pain, unspecified (principal)
CPT/HCPCS: 99282; J1040